=== PATIENT | female | born 1990 | race Caucasian/White ===

== ENCOUNTER 2017-02-19 08:16 | Emergency (ER) | payer MEDICAID ==
[~2017-02-19] VITALS: Ht 162.6 cm; Wt 90.7 kg
[~2017-02-19 08:16] MED LIST: AMOXIL500 MG PO; IBU-8800 MG PO
[2017-02-19 08:19] VITALS: BP 139/75
--- NOTE | 2017-02-19 08:26 | Emergency Room Report ---
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 N Clinical Suspician of Infection? N Mental Status: 1 - Regular (Normal Baseline) Sepsis Risk:Low Sepsis Risk Have you (or family members/close friends) recently traveled outside the [place]? N If Yes, where/when: Have you had exposure to infectious disease within the past month? N TB? Other? 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 Patient denies any other associated injuries. She has a slight antalgic gait. ALLERGIES Coded Allergies: No Known Allergies (02/19/17) Home Medications Reported Medications No Known Home Medications History Medical History General CAD? No Angina: No TN: No Hypertension? No Hyperlipidemia? No CHF? No DVT? No PE? No COPD? No Asthma? No Anemia? No GERD? No Gastric ulcers? No GI Bleed? No Hernia? No Thyroid Problems? No Hypothyroidism? No CVA? No Seizures? No Diabetes? No Renal Insuffiency? No End Stage Renal Disease? No UTI? No Stones? No BPH? No GB Disease: No Nephritic Syndrome? No Asplenia? No Hepatitis? No Sickle Cell Disease? No Arthritis? No Migraines? No Cataracts? No Glaucoma? No MRSA? No HIV? No TB? No Anxiety? No Depression? No Cancer? No More? 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 No: respiratory distress. Lung Sounds bilateral: normal breath sounds, lungs clear. 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 No Comment Upon reevaluation patient appears medically stable, in no acute distress. Patient instructed to use an Marvin wrap, apply ice packs locally, keep affected limb elevated. Work excuse for 2 days provided for patient. Results/Orders Current Medication Orders Sig/Anthony Start time Last Medication Dose Route Stop Time Status Admin Ibuprofen 0 .STK-MED ONE 02/20 0844 DC PO Ibuprofen 0 .STK-MED ONE 02/20 0835 DC PO Ibuprofen 800 MG ONCE ONE 02/19 830 DC 02/19 PO 02/19 831 0843 Orders Procedure Date/time Status STABILIZE JOINT 02/20 828 Active GEN NSG/PT REQ (NOT FOR MEDS!) 02/20 828 Active XRAY/CT/US XRAY/CT/US XRAY LEFT ankle x-ray - negative RIGHT ankle x-ray - negative Departure Departure Time of Disposition 0846 Disposition DC Home or Self Care(routine) Clinical Impression Primary Impression: Right ankle sprain Qualifiers: Encounter type: initial encounter Involved ligament of ankle: unspecified ligament Qualified Code: S93.401A - Sprain of unspecified ligament of right ankle, initial encounter Secondary Impressions: Left ankle sprain Qualifiers: Encounter type: initial encounter Involved ligament of ankle: unspecified ligament Qualified Code: S93.402A - Sprain of unspecified ligament of left ankle, initial encounter Condition STABLE Referrals Dixon Chambers MD: 2 Days-Call Office if not better Patient Instructions DI for Ankle Sprain, How to Use an Elastic Bandage-Knee Sprain Additional Instructions Please alternate Motrin and Tylenol for pain control, keep your ankles elevated, apply ice packs locally, if worse follow up with dr. Chambers as directed. Discharge Counseling Counseled pt/family regarding diagnosis, test results, medications/RX, home care, follow up needs Comment Please alternate Motrin and Tylenol for pain control, keep your ankles elevated, apply ice packs locally, if worse follow up with dr. Chambers as directed. Prescriptions Current Visit Scripts No Known Home Medications ED Critical Care Critical Care No at 6034
--- OUTSIDE RECORDS SUMMARY | 2017-02-19 09:17 | External Medical Summary Rpt | CCD ---
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 URINE CULTURE 57184 [facility] BACTERIAL 7 N N COMMUNTIY COMMUNTIY QUANTTATI HOSPITA HOSPITA VE COLONY COUNT URINE COLLECTIO 56314 [facility] N VENOUS 7 N N BLOOD COMMUNTIY COMMUNTIY VENIPUNCT HOSPITA HOSPITA URE COMPREHEN 35783 [facility] SIVE 7 N N METABOLIC COMMUNTIY COMMUNTIY PANEL HOSPITA HOSPITA URINE 41022 [facility] 7 N N TEST COMMUNTIY COMMUNTIY VISUAL HOSPITA HOSPITA COLOR CMPRSN METHS URNLS DIP 33813 [facility] 7 N N STICK/TAB COMMUNTIY COMMUNTIY LET HOSPITA HOSPITA REAGENT AUTO MICROSCOP Y BLOOD 10346 [facility] COUNT 7 N N COMPLETE COMMUNTIY COMMUNTIY AUTO&AUTO HOSPITA HOSPITA DIFRNTL WBC INJECTION J1885 [facility] 7 N N KETOROLAC COMMUNTIY COMMUNTIY HOSPITA HOSPITA TROMETHAM INE PER [address] [place] [address] [facility] LIPASE 7 N N COMMUNTIY COMMUNTIY HOSPITA HOSPITA INJECTION J2001 [facility] 6 N N LIDOCAINE COMMUNTIY COMMUNTIY HCL HOSPITA HOSPITA INTRAVENO US INFUS 10 MG INCISION 71090 [facility] ELVA & 6 [place] DRAINAGE EMERGENCY ABSCESS PHYS SIMPLE/SI NGLE LIPID 00120 [facility] PANEL 6 DIAGNOSTI DIAGNOSTI CS CS HEMOGLOBI 25874 [facility] N 6 DIAGNOSTI DIAGNOSTI GLYCOSYLA CS CS ANGELIQUE A1C URNLS DIP 12971 [facility] 6 AND STICK/TAB PEDIATRIC LET RGNT S & INTER NON-AUTO W/O MICRSCP COLLECTIO 71772 [facility] N VENOUS 6 DIAGNOSTI DIAGNOSTI BLOOD CS CS VENIPUNCT URE GENERAL 86703 [facility] 6 DIAGNOSTI DIAGNOSTI PANEL CS CS SPMTRY 48231 [facility]ER[facility] & GREISNER W/VC 6 ASTHMA III PRERNA EXPIRATOR ASSOC OF Y JENNIFER TH W/WO MXML VOL VNTJ RADEX 18787 [facility] FOOT 6 N N COMPLETE COMMUNTIY COMMUNTIY MINIMUM 3 HOSPITA HOSPITA VIEWS ANES 13330 [place] DE[place]AY LOWER 6 ANESTHESI INTESTINE A GROUP PS ENDOSCOPY DISTAL DUODENUM COLONOSCO 02274 GASTROENT CASE JUS PY 6 EROLOGY W/BIOPSY AND SINGLE/MU HEPATOL LTIPLE EGD 21366 GASTROENT CASE JUS TRANSORAL 6 EROLOGY BIOPSY AND SINGLE/MU HEPATOL LTIPLE RADEX 56665 [facility] [place] POLA ANKLE 6 RADIOLOGY RHO COMPLETE MINIMUM 3 VIEWS RADEX 17854 [facility] [place] FOOT 6 RADIOLOGY RHO COMPLETE MINIMUM 3 [place] [address] [place] TRANSVAGI 6 [facility] NAL SERV FOUNDATIO N SMR PRIM 85395 [facility] BEARPITN SRC WET 6 [facility] SERV NFCT AGT FOUNDATIO N IADNA 28641 [facility] CHLAMYDIA 6 Y Y [facility] TRACHOMAT IS AMPLIFIED PROBE TQ IADNA 23705 [facility] NEISSERIA 6 Y Y [facility] [place] [address] [facility] [place] ABDOMEN & 6 RADIOLOGY RHO PELVIS W/CONTRAS T MATERIAL IAADIADOO 24196 [facility] RABI[facility] 6 N URGENT ABD STREPTOCO CARE CCUS GROUP A IAADIADOO 99090 [facility] 6 N URGENT ABD INFLUENZA CARE RADIOLOGI 14451 [facility] C 5 [place] ELE[place] EXAMINATI ORTHOPAED ON KNEE 3 ICS PLC VIEWS COLLECTIO 89370 [facility] N VENOUS 5 N N BLOOD COMMUNTIY COMMUNTIY VENIPUNCT HOSPITA HOSPITA URE COMPREHEN 70680 [facility] SIVE 5 N N METABOLIC COMMUNTIY COMMUNTIY PANEL HOSPITA HOSPITA FIBRIN 49466 [facility] DGRADJ 5 N N PRODUCTS COMMUNTIY COMMUNTIY D-DIMER HOSPITA HOSPITA QUANTITAT EMANUEL BLOOD 77399 [facility] COUNT 5 N N COMPLETE COMMUNTIY COMMUNTIY AUTO&AUTO HOSPITA HOSPITA DIFRNTL WBC URNLS DIP 17826 [place] 5 [facility] STICK/TAB SERV LET RGNT FOUNDATIO AUTO W/O N MICROSCOP Y SMR PRIM 73842 [facility] SRC WET 5 [facility] M[facility] SERV NFCT AGT FOUNDATIO N CULTURE 21089 [facility] BACTERIAL 5 N N COMMUNTIY COMMUNTIY QUANTTATI HOSPITA HOSPITA VE COLONY COUNT URINE URINE 87850 [facility] 5 N N TEST COMMUNTIY COMMUNTIY VISUAL HOSPITA HOSPITA COLOR CMPRSN METHS URNLS DIP 82589 [facility] 5 N N STICK/TAB COMMUNTIY COMMUNTIY LET HOSPITA HOSPITA REAGENT AUTO MICROSCOP Y AREO MASK A7015 MT MED MT MED USED W/ 5 EQUIPMENT EQUIPMENT DME NEB INC INC BRNCDILAT 12918 [facility] GREISNER RSPSE 5 ASTHMA III PRERNA SPMTRY ASSOC OF PRE&POST- TH BRNCDILAT ADMN PRESSURIZ 58676 [facility] & GREISNER ED/NONPRE 5 ASTHMA III PRERNA SSURIZED ASSOC OF INHALATIO TH N TREATMENT NEBULIZER E0570 MT MED MT MED WITH 5 EQUIPMENT EQUIPMENT COMPRESSO INC INC R ADMN SET A7005 MT MED MT MED W/SM VOL 5 EQUIPMENT EQUIPMENT NONFILTR INC INC NEBULIZR NON-DISPB L URINE 70415 [facility] 5 N N TEST COMMUNTIY COMMUNTIY VISUAL HOSPITA HOSPITA COLOR CMPRSN METHS URNLS DIP 38150 [facility] 5 N N STICK/TAB COMMUNTIY COMMUNTIY LET HOSPITA HOSPITA REAGENT AUTO MICROSCOP Y IAADIADOO 60148 [facility] 5 N URGENT ABD STREPTOCO CARE CCUS GROUP A DEMO&/VAISHALI 57098 ALLERGY & MENTZER L OF PT 5 ASTHMA HEYDI UTILIZ ASSOC OF AERSL TH GEN/NEB/I NHLR/IP PRESSURIZ 25363 ALLERGY & MENTZER ED/NONPRE 5 ASTHMA HEYDI SSURIZED ASSOC OF INHALATIO TH N TREATMENT PERCUTANE 03039 [facility]ER[facility] & MENTZER OUS TESTS 5 ASTHMA HEYDI ASSOC OF W/ALLERGE TH WILIAN EXTRACTS BRNCDILAT 83956 ALLERGY & MENTZER RSPSE 5 ASTHMA HEYDI SPMTRY ASSOC OF PRE&POST- TH BRNCDILAT ADMN APPL 50647 [facility] MODALITY 5 COL COL 1/> AREAS ELEC STIMJ UNATTENDE D APPL 29010 [place] [facility] MODALITY 5 COL COL 1/> AREAS TRACTION MECHANICA L THERAPEUT 35040 [facility] IC PX 1/> 5 COL COL AREAS EACH 15 MIN EXERCISES MANUAL 27786 [place] GRESHAMON THERAPY 5 COL COL TQS 1/> REGIONS EACH 15 MINUTES CHIROPRAC 81342 [facility] GRESHAMON TIC 5 COL COL MANIPULAT EMANUEL [place] SPINAL 3-4 REGIONS APPLICATI 97473 [facility] LIN[facility] ON 5 COL COL MODALITY 1/> AREAS HOT/COLD PACKS LEVEL V 94224 [facility] SURG 5 PEREZ & CHICA PATHOLOGY DUBILIER GROSS&MARTIN ROSCOPIC EXAM NEURAXIAL 60802 [facility] ANT LABOR 5 ANESTHESI ANALG/ANE A GROUP S PLND PS VAGINAL DELIVERY VAGINAL 17696 [place] DELIVERY 5 [facility] ONLY SERV W/POSTPAR FOUNDATIO SUKHWINDER CARE N APPL 82696 [facility] MODALITY 5 COL COL 1/> AREAS TRACTION MECHANICA L MANUAL 47532 [facility] [place] THERAPY 5 COL COL TQS 1/> REGIONS EACH 15 MINUTES CHIROPRAC 70866 [facility] LIN[facility] TIC 5 COL COL MANIPULAT EMANUEL [place] SPINAL 3-4 REGIONS COLLECTIO 70738 [facility] N VENOUS 5 DIAGNOSTI DIAGNOSTI BLOOD CS CS VENIPUNCT URE MANUAL 47685 [place] [facility] THERAPY 5 COL COL TQS 1/> REGIONS EACH 15 MINUTES CUL 98953 [facility] PRSMPTV 5 DIAGNOSTI DIAGNOSTI PTHGNC CS CS ORGANISM SCRN W/COLONY ESTIMJ APPL 79610 [facility] MODALITY 5 COL COL 1/> AREAS TRACTION MECHANICA L CHIROPRAC 47891 [facility] [place] TIC 5 COL COL MANIPULAT EMANUEL TX SPINAL 3-4 REGIONS APPL 26244 [place] MODALITY 5 COL COL 1/> AREAS ELEC STIMJ UNATTENDE D URNLS DIP 78028 [place] 5 [facility] STICK/TAB SERV LET RGNT FOUNDATIO AUTO W/O N MICROSCOP Y US PREG 14503 [place] O'DINESH UTERUS 5 MEDICAL ROLANDO REAL TIME SERV F/U FOUNDATIO TRNSABDL N PER FETUS BLOOD 25058 [facility] COUNT 5 DIAGNOSTI DIAGNOSTI COMPLETE CS CS AUTOMATED IAADIADOO 48050 [facility] 5 N N INFLUENZA COMMUNTIY COMMUNTIY HOSPITA HOSPITA APPL 74777 [facility] GRESHAMON MODALITY 5 COL COL 1/> AREAS TRACTION MECHANICA L URNLS DIP 54741 [place] 5 [facility] [place] STICK/TAB SERV LET RGNT FOUNDATIO AUTO W/O N MICROSCOP Y APPL 73723 [facility] GRESHAMON MODALITY 5 COL COL 1/> AREAS ELEC STIMJ UNATTENDE D CHIROPRAC 55254 [facility] TIC 5 COL COL MANIPULAT EMANUEL TX SPINAL 3-4 REGIONS MANUAL 18643 [facility] MCCORDESON THERAPY 5 COL COL TQS 1/> REGIONS EACH 15 MINUTES APPLICATI 75925 [facility] ON 5 COL COL MODALITY 1/> AREAS HOT/COLD PACKS APPLICATI 33470 [facility] [facility] ON 5 COL COL MODALITY 1/> AREAS HOT/COLD PACKS MANUAL 49622 [facility] M[place]ORDES[place] THERAPY 5 COL COL TQS 1/> REGIONS EACH 15 MINUTES CHIROPRAC 44552 [facility] [facility] TIC 5 COL COL MANIPULAT EMANUEL TX SPINAL 3-4 REGIONS APPL 42709 [facility] GR[place]AM[place] MODALITY 5 COL COL 1/> AREAS ELEC STIMJ UNATTENDE D URNLS DIP 30485 [place] 5 [facility] STICK/TAB SERV LET RGNT FOUNDATIO AUTO W/O N MICROSCOP Y APPL 89084 [facility] GR[facility]AM[facility] MODALITY 5 COL COL 1/> AREAS TRACTION MECHANICA L US PREG 46469 [place] O'DINESH UTERUS 5 MEDICAL ROLANDO REAL TIME SERV F/U FOUNDATIO TRNSABDL N PER FETUS URNLS DIP 11998 [place] 5 [facility] STICK/TAB SERV LET RGNT FOUNDATIO AUTO W/O N MICROSCOP Y IADNA 14772 [facility] NEISSERIA 5 DIAGNOSTI DIAGNOSTI CS CS GONORRHOE AE AMPLIFIED PROBE TQ APPL 31890 [facility] GR[facility]AM[place] MODALITY 5 COL COL 1/> AREAS ELEC STIMJ UNATTENDE D APPL 64251 [place] MODALITY 5 COL COL 1/> AREAS TRACTION MECHANICA L MANUAL 03514 [facility] M[place] THERAPY 5 COL COL TQS 1/> REGIONS EACH 15 MINUTES CHIROPRAC 49198 HOLLANDEDUARDO GRESHAMON TIC 5 COL COL MANIPULAT EMANUEL TX SPINAL 3-4 REGIONS SMR PRIM 65551 [place] SRC WET 5 [facility] NFCT AGT FOUNDATIO N IADNA 76516 [facility] CHLAMYDIA 5 DIAGNOSTI DIAGNOSTI CS CS TRACHOMAT IS AMPLIFIED PROBE TQ URNLS DIP 45162 [facility] 5 N N STICK/TAB COMMUNITY COMMUNITY LET HOSPITA HOSPITA REAGENT AUTO MICROSCOP Y URNLS DIP 81134 [place] 5 [facility] STICK/TAB SERV LET RGNT FOUNDATIO AUTO W/O N MICROSCOP Y MANUAL 08280 [facility] THERAPY 5 COL COL TQS 1/> REGIONS EACH 15 MINUTES APPLICATI 96283 [facility] [facility] ON 5 COL COL MODALITY 1/> AREAS HOT/COLD PACKS APPL 08129 [facility] GR[place]AM[place] MODALITY 5 COL COL 1/> AREAS ELEC STIMJ UNATTENDE D CHIROPRAC 78528 HOLLANDEDUARDO GRESHAMON TIC 5 COL COL MANIPULAT EMANUEL TX SPINAL 3-4 REGIONS APPL 83314 [facility] M[place] MODALITY 5 COL COL 1/> AREAS TRACTION MECHANICA L APPL 45034 [facility] MODALITY 5 COL COL 1/> AREAS ELEC STIMJ UNATTENDE D APPL 68572 [facility] MODALITY 5 COL COL 1/> AREAS TRACTION MECHANICA L MANUAL 28575 [facility] GR[facility]AM[place] THERAPY 5 COL COL TQS 1/> REGIONS EACH 15 MINUTES CHIROPRAC 27063 [facility] TIC 5 COL COL MANIPULAT EMANUEL TX SPINAL 3-4 REGIONS APPLICATI 75839 [facility] ON 5 COL COL MODALITY 1/> AREAS HOT/COLD PACKS APPLICATI 78665 [facility] ON 4 COL COL MODALITY 1/> AREAS HOT/COLD PACKS CHIROPRAC 80980 [facility] TIC 4 COL COL MANIPULAT EMANUEL TX SPINAL 3-4 REGIONS MANUAL 43073 [facility] THERAPY 4 COL COL TQS 1/> REGIONS EACH 15 MINUTES APPL 08167 [facility] MODALITY 4 COL COL 1/> AREAS TRACTION MECHANICA L APPL 66162 [facility] MODALITY 4 COL COL 1/> AREAS ELEC STIMJ UNATTENDE D URNLS DIP 13542 [place] 4 [facility] STICK/TAB SERV LET RGNT FOUNDATIO AUTO W/O N MICROSCOP Y US PREG 53033 [place] O'DINESH UTERUS 4 MEDICAL ROLANDO REAL TIME SERV F/U FOUNDATIO TRNSABDL N PER FETUS APPL 09364 [facility] MODALITY 4 COL COL 1/> AREAS TRACTION MECHANICA L APPL 10790 [facility] MODALITY 4 COL COL 1/> AREAS ELEC STIMJ UNATTENDE D MANUAL 95554 [facility] THERAPY 4 COL COL TQS 1/> REGIONS EACH 15 MINUTES CHIROPRAC 11138 [facility] TIC 4 COL COL MANIPULAT EMANUEL TX SPINAL 3-4 REGIONS APPLICATI 58733 [facility] [facility] ON 4 COL COL MODALITY 1/> AREAS HOT/COLD PACKS APPLICATI 94036 [facility] [facility] ON 4 COL COL MODALITY 1/> AREAS HOT/COLD PACKS CHIROPRAC 39251 [facility] TIC 4 COL COL MANIPULAT EMANUEL TX SPINAL 3-4 REGIONS MANUAL 10994 [facility] THERAPY 4 COL COL TQS 1/> REGIONS EACH 15 MINUTES APPL 74050 [facility] MCCORDESON MODALITY 4 COL COL 1/> AREAS ELEC STIMJ UNATTENDE D APPL 53578 [facility] GRESHAMON MODALITY 4 COL COL 1/> AREAS TRACTION MECHANICA L IAADIADOO 16367 [facility] 4 N N INFLUENZA [facility] HOSPITA HOSPITA APPL 38339 [facility] MCCORDESON MODALITY 4 COL COL 1/> AREAS TRACTION MECHANICA L APPL 62016 [facility] MODALITY 4 COL COL 1/> AREAS ELEC STIMJ UNATTENDE D MANUAL 57746 [facility] THERAPY 4 COL COL TQS 1/> REGIONS EACH 15 MINUTES CHIROPRAC 29563 [facility] TIC 4 COL COL MANIPULAT EMANUEL [place] SPINAL 3-4 REGIONS COLLECTIO 70844 [facility] N VENOUS 4 DIAGNOSTI DIAGNOSTI BLOOD CS CS VENIPUNCT URE APPLICATI 19613 [facility] MCCORDESON ON 4 COL COL MODALITY 1/> AREAS HOT/COLD PACKS GLUCOSE 59232 [facility] TOLERANCE 4 DIAGNOSTI DIAGNOSTI TEST GTT CS CS 3 SPECIMENS GLUCOSE 21886 [facility] TOLERANCE 4 DIAGNOSTI DIAGNOSTI EA ADDL CS CS BEYOND 3 SPECIMENS GLUCOSE 85751 [facility] POST 4 DIAGNOSTI DIAGNOSTI GLUCOSE CS CS DOSE BLOOD 38150 [facility] COUNT 4 DIAGNOSTI DIAGNOSTI COMPLETE CS CS AUTOMATED COLLECTIO 39293 [facility] N VENOUS 4 DIAGNOSTI DIAGNOSTI BLOOD CS CS VENIPUNCT URE COMPREHEN 16764 [facility] SIVE 4 DIAGNOSTI DIAGNOSTI METABOLIC CS CS PANEL APPL 77181 HOLLANDVEGA LINO MODALITY 4 COL COL 1/> AREAS TRACTION MECHANICA L APPL 71443 [facility] MODALITY 4 COL COL 1/> AREAS ELEC STIMJ UNATTENDE D MANUAL 17432 [facility] THERAPY 4 COL COL TQS 1/> REGIONS EACH 15 MINUTES CHIROPRAC 68272 [facility] GRESHAMON TIC 4 COL COL MANIPULAT EMANUEL TX SPINAL 3-4 REGIONS APPLICATI 43722 [facility] ON 4 COL COL MODALITY 1/> AREAS HOT/COLD PACKS APPLICATI 28304 [facility] ON 4 COL COL MODALITY 1/> AREAS HOT/COLD PACKS CHIROPRAC 26462 [facility] [place] TIC 4 COL COL MANIPULAT EMANUEL TX SPINAL 3-4 REGIONS MANUAL 34522 [facility] THERAPY 4 COL COL TQS 1/> REGIONS EACH 15 MINUTES APPL 17805 [facility] GRESHAMON MODALITY 4 COL COL 1/> AREAS ELEC STIMJ UNATTENDE D APPL 27082 [facility] GR[facility]AM[facility] MODALITY 4 COL COL 1/> AREAS TRACTION MECHANICA L APPL 49138 [facility] [facility] MODALITY 4 COL COL 1/> AREAS TRACTION MECHANICA L APPL 10341 [facility] GR[facility] MODALITY 4 COL COL 1/> AREAS ELEC STIMJ UNATTENDE D MANUAL 90086 [facility] THERAPY 4 COL COL TQS 1/> REGIONS EACH 15 MINUTES CHIROPRAC 81253 [facility] TIC 4 COL COL MANIPULAT EMANUEL TX SPINAL 3-4 REGIONS APPLICATI 31140 [facility] ON 4 COL COL MODALITY 1/> AREAS HOT/COLD PACKS US PREG 77415 [facility] O'DINESH UTERUS 4 MEDICAL ROLANDO W/DETAIL SERV FOUNDATIO [place]ES[place] 1ST [place] [address] [facility] [place] FRITZ 4 RADIOLOGY [place]AY UTERUS LIMITED 1/> [place] [address] [facility] 4 N N UTERUS 14 [facility] HOSPITA TRANSABDL GESTAT CULTURE 62247 [facility] BACTERIAL 4 DIAGNOSTI DIAGNOSTI CS CS QUANTTATI VE COLONY COUNT URINE CULTURE 84964 [facility] BCT 4 DIAGNOSTI DIAGNOSTI ISOL&PRSM CS CS PTV ID ISOLATE EA URINE CUL BACT 24028 [facility] AEROBIC 4 N N ADDL [facility] METHS HOSPITA HOSPITA DEFINITIV E EA ISOL CULTURE 01194 [facility] BACTERIAL 4 N N COMMUNITY [facility] QUANTTATI HOSPITA HOSPITA VE COLONY COUNT URINE COMPREHEN 83841 [facility] SIVE 4 N N METABOLIC [facility] PANEL HOSPITA HOSPITA UROGRAPHY 90647 [facility] [place] POLA IV W/WO 4 RADIOLOGY RHO KUB W/WO TOMOGRAPH Y UROGRAPHY 69590 [facility] INFUSION 4 N N DRIP [facility] &/BOLUS HOSPITA HOSPITA TECHNIQUE SUSCEPTIB 25566 [facility] LTY STDY 4 N N ANTIMICRB [facility] IAL HOSPITA HOSPITA MICRO/AGA R DILUTJ BLOOD 66707 [facility] COUNT 4 N N COMPLETE [facility] AUTO&AUTO HOSPITA HOSPITA DIFRNTL WBC URNLS DIP 95009 [facility] 4 N N STICK/TAB [facility] LET HOSPITA HOSPITA REAGENT AUTO MICROSCOP Y BLOOD 65569 [facility] COUNT 4 DIAGNOSTI DIAGNOSTI COMPLETE CS CS AUTOMATED ANTIBODY 97271 [facility] RUBELLA 4 DIAGNOSTI DIAGNOSTI CS CS ANTIBODY 79276 [facility] SCREEN 4 DIAGNOSTI DIAGNOSTI RBC EACH CS CS SERUM TECHNIQUE BLOOD 00674 [facility] TYPING 4 DIAGNOSTI DIAGNOSTI SEROLOGIC CS CS ABO IADNA 95578 [facility] NEISSERIA 4 DIAGNOSTI DIAGNOSTI CS CS GONORRHOE [place] [address] [facility] HEPATITIS 4 DIAGNOSTI DIAGNOSTI B CS CS SURFACE ANTIGEN CYTP C/V 43083 [facility] AUTO THIN 4 DIAGNOSTI DIAGNOSTI LYR CS CS PREPJ SCR MNL RESCR PHYS IADNA 70658 [facility] CHLAMYDIA 4 DIAGNOSTI DIAGNOSTI CS CS TRACHOMAT IS AMPLIFIED [place]BE [place]Q [place] PREG 22199 [place] ROVERTO UTERUS 4 MEDICAL PVC MONITOR REAL TIME SERV W/IMAGE FOUNDATIO DCMTN N TRANSVAG COLLECTIO 74326 [facility] N VENOUS 4 DIAGNOSTI DIAGNOSTI [place] [address] [facility] [place] SANCHEZ JAM 4 RADIOLOGY UTERUS LIMITED 1/> FETUSES CULTURE 22536 [facility] BACTERIAL 4 N N [facility] QUANTTATI HOSPITA HOSPITA VE COLONY COUNT URINE BASIC 15392 [facility] METABOLIC 4 N N PANEL [facility] [place] [address] [facility] 4 N N UTERUS 14 COMM[facility]ITY [facility] HOSPITA HOSPITA TRANSABDL GESTAT URINE 65585 [facility] 4 N N TEST [facility] VISUAL HOSPITA HOSPITA COLOR CMPRSN METHS GONADOTRO 13848 [facility] PIN 4 N N CHORIONIC [facility] HOSPITA HOSPITA QUANTITAT EMANUEL BLOOD 55914 [facility] COUNT 4 N N COMPLETE [facility] AUTO&AUTO HOSPITA HOSPITA DIFRNTL WBC URNLS DIP 83445 [facility] 4 N N STICK/TAB [facility] LET HOSPITA HOSPITA REAGENT AUTO MICROSCOP Y URINE 90361 [facility] TEST HLTH DEPT HLTH DEPT VISUAL SCO SCO COLOR CMPRSN METHS URINE 57136 [facility] 3 N N TEST [facility] VISUAL HOSPITA HOSPITA COLOR CMPRSN METHS BLOOD 04004 [facility] COUNT 3 N N COMPLETE [facility] AUTO&AUTO HOSPITA HOSPITA DIFRNTL WBC COLLECTIO 07458 [facility] N VENOUS 3 N N BLOOD [facility] [place] [address] [facility] MUNA ABDOMINAL 3 RADIOLOGY REAL TIME W/IMAGE LIMITED URINE 75338 [facility] 3 N N TEST [facility] VISUAL HOSPITA HOSPITA COLOR CMPRSN METHS BLOOD 20738 [facility] OCCULT 3 N N PEROXIDAS [facility] E ACTV HOSPITA HOSPITA QUAL FECES 1-3 SPEC URNLS DIP 24388 [facility] 3 N N STICK/TAB [facility] LET HOSPITA HOSPITA REAGENT AUTO MICROSCOP Y BLOOD 22858 [facility] COUNT 3 N N COMPLETE [facility] AUTO&AUTO HOSPITA HOSPITA DIFRNTL WBC THROMBOPL 12700 [facility] ASTIN 3 N N TIME [facility] PARTIAL HOSPITA HOSPITA PLASMA/WH OLE BLOOD FIBRIN 96041 [facility] DGRADJ 3 N N PRODUCTS [facility] D-DIMER HOSPITA HOSPITA QUANTITAT EMANUEL PROTHROMB 02002 [facility] IN TIME 3 N N COMMUNITY [facility] HOSPITA HOSPITA COLLECTIO 44306 [facility] N VENOUS 3 N N BLOOD [facility] VENIPUNCT HOSPITA HOSPITA URE COMPREHEN 02006 [facility] SIVE 3 N N METABOLIC [facility] PANEL HOSPITA HOSPITA NEURAXIAL 00921 [facility] 3 ANESTHESI MARTIN ANALG/ANE A GROUP S PLND PS VAGINAL DELIVERY OTHER 7359 [facility] MANUALLY 3 N N ASSISTED [facility] DELIVERY HOSPITA HOSPITA OTHER 7309 [facility] ARTIFICIA 3 N N L RUPTURE [facility] OF HOSPITA HOSPITA MEMBRANES GLUC BLD 64930 [facility] GLUC MNTR 2 N N DEV [facility] CLEARED HOSPITA HOSPITA FDA SPEC HOME USE Encounters Encounter Start End Date Code Location Performer Type Date [facility] - 7 7 [facility] T [facility] OFFICE 98466 [facility] 7 7 [employer] T VISIT 15 MINUTES EMERGENCY 82506 [facility] KATHERINE 7 7 [place] EM[facility] T VISIT PHYS HIGH/URGE NT SEVERITY PERIODIC 15571 JOSE RODRIGUEZ PREVENTIV 7 7 MEDICAL E MED EST SERV PATIENT FOUNDATIO 18-39 YRS N EMERGENCY 20127 [facility] ERIK 7 7 [place] [facility] EMERGENC[facility] T VISIT PHYS HIGH/URGE NT SEVERITY OFFICE 26664 [facility] OUTPATIEN 7 7 [facility] T VISIT 15 MINUTES OFFICE 07963 [facility] 7 7 N URGENT T VISIT CARE 15 MINUTES EMERGENCY 20091 [facility] 7 7 [place] [facility] EMERGENCY T VISIT PHYS MODERATE SEVERITY OFFICE 28891 [facility]ANDA CONSULTAT 7 7 [facility] ION NEW/ESTAB PATIENT 40 MIN OFFICE 42849 [facility] OUTPATIEN 7 7 [facility] T VISIT 15 MINUTES OFFICE 08672 [facility] OUTPATIEN 7 7 [facility] T VISIT 5 MINUTES OFFICE 76555 [facility] OUTPATIEN 7 7 [facility] T VISIT 5 MINUTES OFFICE 43570 [facility] OUTPATIEN 7 7 [facility] T VISIT 5 MINUTES OFFICE 46184 [facility]ERRO [facility] 7 7 [facility] T VISIT 5 MINUTES OFFICE 04614 [facility] THOMPS[facility], OUTPATIEN 7 7 [facility] III T NEW 30 MINUTES [facility] EMERGENCY [id number] 7 7 [facility] DEPARTMEN E T VISIT HOSPITALS HIGH/URGE NT SEVERITY EMERGENCY 72655 [facility] 7 7 [place] DEPARTMEN PHYSICIAN T VISIT S ASSIST MODERATE SEVERITY EMERGENCY 83209 [facility] 7 7 N DEPARTMEN COMMUNTIY T VISIT HOSPITA MODERATE SEVERITY [facility] - 7 7 N OUTPATIEN COMMUNTIY T HOSPITA EMERGENCY 58172 [facility] 7 7 [place] DEPARTMEN EMERGENCY T VISIT PHYS HIGH/URGE NT SEVERITY [facility] - 7 7 N OUTPATIEN COMMUNTIY T HOSPITA EMERGENCY 47505 [facility] 7 7 N DEPARTMEN COMMUNTIY T VISIT HOSPITA LOW/MODER SEVERITY EMERGENCY 51868 [facility] 7 7 [place] DEPARTMEN EMERGENCY T VISIT PHYS MODERATE SEVERITY EMERGENCY 84537 [facility] 6 6 N DEPARTMEN COMMUNTIY T VISIT HOSPITA HIGH/URGE NT SEVERITY [facility] - 6 6 N OUTPATIEN COMMUNTIY T HOSPITA EMERGENCY 40014 [facility] 6 6 [place] DEPARTMEN EMERGENCY T VISIT PHYS MODERATE SEVERITY OFFICE 91885 [facility] 6 AND T VISIT PEDIATRIC 15 S & INTER MINUTES OFFICE 00526 [facility] 6 6 [facility] III PRERNA T VISIT ASSOC OF 15 TH MINUTES EMERGENCY 95917 [facility] 6 6 N DEPARTMEN COMMUNTIY T VISIT HOSPITA MODERATE SEVERITY [facility] - 6 6 N OUTPATIEN COMMUNTIY T HOSPITA [facility] - 6 6 N OUTPATIEN COMMUNTIY T HOSPITA EMERGENCY 99659 [facility] 6 6 [place] [facility] DEPARTMEN EMERGENCY PAT T VISIT PHYS MODERATE SEVERITY EMERGENCY 02995 [facility] 6 6 N DEPARTMEN COMMUNTIY T VISIT HOSPITA LOW/MODER SEVERITY EMERGENCY 38188 [facility] 6 6 [place] DEPARTMEN EMERGENCY T VISIT PHYS MODERATE SEVERITY OFFICE 75932 [facility] 6 6 GROUND [facility] NEW/ESTAB CLINI PATIENT 60 MIN OFFICE 93176 [facility] OUTPATIEN 6 6 N URGENT ABD T VISIT CARE 15 MINUT[facility]22 [facility] 6 6 [facility] E MED EST SERV PATIENT F[facility] 18-39 YRS N OFFICE 30925 [facility] 6 AND T VISIT PEDIATRIC 15 S & INTER MINUTES EMERGENCY 00810 [facility] DEPT 6 6 [place] TESSIE VISIT EMERGENCY HIGH PHYS SEVERITY& THREAT FUN OFFICE 44874 [facility] 6 6 N URGENT ABD T VISIT CARE 15 MINUTES OFFICE 42643 [facility] 6 6 ASTH[facility] III PRERNA T VISIT ASSOC OF 15 TH MINUTES EMERGENCY 25766 [facility] DEPT 6 6 [place] VISIT EMERGENCY PAT HIGH PHYS SEVERITY& THREAT [facility] OFFICE 13377 [facility] OUT[facility] 6 6 N URGENT ABD T VISIT CARE 25 MINUTES OFFICE 05139 [facility] 5 5 [place] ELENA T NEW 30 ORTHOPAED MINUTES [facility] EMERGENCY 90255 [facility] 5 5 [place] DEPARTMEN EMERGENCY T VISIT PHYS MODERATE SEVERITY EMERGENCY 33559 [facility] 5 5 N DEPARTMEN COMMUNTIY T VISIT HOSPITA LOW/MODER SEVERITY [facility] - 5 5 N OUTPATIEN COMMUNTIY T HOSPITA EMERGENCY [address] [facility] DEPT 5 5 [place] MON VISIT EMERGENCY HIGH PHYS SEVERITY& THREAT [facility] - 5 5 N OUTPATIEN COMMUNTIY T HOSPITA EMERGENCY 98911 [facility] 5 5 N DEPARTMEN COMMUNTIY T VISIT HOSPITA MODERATE SEVERITY OFFICE 64885 [facility] 5 5 [facility] T VISIT SERV 15 FOUNDAT[facility] MINUTES N EMERGENCY 93863 [facility] 5 5 N DEPARTMEN COMMUNTIY T VISIT HOSPITA MODERATE SEVERITY [facility] - 5 5 N OUTPATIEN COMMUNTIY T HOSPITA EMERGENCY 77859 [facility] 5 5 [place] TESSIE DEPARTMEN EMERGENCY T VISIT PHYS HIGH/URGE NT SEVERITY OFFICE 72837 [facility] 5 5 ASTHMA III PRERNA T VISIT ASSOC OF 15 TH MINUTES EMERGENCY 71695 [facility] 5 5 [place] DEPARTMEN EMERGENCY T VISIT SERV MODERATE SEVERITY [facility] - 5 5 N OUTPATIEN COMMUNTIY T HOSPITA EMERGENCY 57074 [facility] 5 5 N DEPARTMEN COMMUNTIY T VISIT HOSPITA LIMITED/M INOR PROB OFFICE 07113 [facility] 5 5 [facility] T VISIT SERV 15 [facility] MINUTES N OFFICE 41008 [facility] 5 5 N URGENT ABD T VISIT CARE 15 MINUTES OFFICE 62675 [facility] 5 5 N URGENT ABD T NEW 30 CARE MINUTES OFFICE 10394 [facility] 5 5 [facility] HEYDI T NEW 60 ASSOC OF MINUTES TH OFFICE 72318 [facility] 5 5 [facility] T VISIT SERV 10 [facility]OUND[facility] MINUTES N [facility] - 5 5 N OUTPATIEN COMMUNTIY T HOSPITA EMERGENCY 16013 [facility] 5 5 N DEPARTMEN COMMUNTIY T VISIT HOSPITA LOW/MODER SEVERITY EMERGENCY 17734 [facility] MAR 5 5 [place] DEPARTMEN EMERGENCY T VISIT PHYS MODERATE SEVERITY OFFICE 65009 [facility] 5 5 [facility] T VISIT SERV 15 [facility] MINUTES N OFFICE 81732 [facility] 5 5 [facility] T VISIT SERV 15 FOUNDAT[facility] MINUTES N EMERGENCY 87548 [facility] 5 5 N DEPARTMEN COMMUNTIY T VISIT HOSPITA LIMITED/M IN[facility] PROB [facility] - 5 5 N OUTPATIEN COMMUNTIY T HOSPITA OFFICE 72991 [place] [facility] 5 5 [facility] T VISIT SERV 15 FOUND[facility] MINUTES N OFFICE 85022 [facility] 5 5 COL COL T VISIT 10 MINUTES OFFICE 02854 [place] [facility] 5 5 [facility] T VISIT SERV 15 [facility]OUND[facility] MINUTES N [facility] - 5 5 N OUTPATIEN COMMUNTIY T HOSPITA EMERGENCY 93963 [facility] 5 5 N [facility] COMMUNTIY T VISIT HOSPITA HIGH/URGE NT SEVERITY OFFICE 72332 [place] [facility] 5 5 [facility] T VISIT SERV 15 [facility] MINUTES N OFFICE 74991 [facility] 5 5 [facility] T VISIT SERV 15 [facility] MINUTES N OFFICE 95571 [facility] 5 5 [facility] T VISIT SERV 15 [facility]OUND[facility] MINUTES N [facility] - 5 5 N OUTPATIEN COMMUNITY T HOSPITA EMERGENCY 16910 [facility] 5 5 N DEPARTMEN COMMUNITY T VISIT HOSPITA MODERATE SEVERITY OFFICE 20140 [facility] 5 5 [facility] T VISIT SERV 15 [facility]OUND[facility] MINUTES N OFFICE 11852 [facility] 4 4 [facility] T VISIT SERV 15 FOUNDATIO MINUTES N [facility] 4 4 N [facility] COMMUNITY T HOSPITA EMERGENCY 28441 [facility] 4 4 N [facility] COMMUNITY T VISIT HOSPITA MODERATE SEVERITY OFFICE 53417 [facility] 4 4 [facility] T VISIT SERV 15 [facility] MINUTES N OFFICE 16816 [facility] 4 4 [facility] T VISIT SERV 15 FOUNDATIO MINUTES N OFFICE 46450 [facility] 4 4 COL COL T NEW 20 MINUTES EMERGENCY 41285 [facility] 4 4 N [facility] COMMUNITY T VISIT HOSPITA MODERATE SEVERITY [facility] - 4 4 N [facility] COMMUNITY T HOSPITA OFFICE 65512 [place] [facility] 4 4 [facility] T VISIT SERV 15 [facility]OUND[facility] MINUTES N OFFICE 01436 [facility] 4 4 [facility] T VISIT SERV 15 [facility]OUND[facility] MINUTES N OFFICE 08447 [facility] 4 4 [facility] T VISIT SERV 15 FOUNDATIO MINUTES N EMERGENCY 74596 [facility] 4 4 N [facility] T VISIT [facility]ESS HOSPITAL LIMITED[facility]M INOR PROB EMERGENCY 48445 [facility] 4 4 [place] PRERNA [facility] EMERGENCY T VISIT [facility] MODERATE [facility]VERITY [facility] - 4 4 N [facility] COMMUNITY T HOSPITA OFFICE 60902 [place] [facility] 4 4 [facility] T VISIT SERV 15 FOUNDAT[place] MINUTES N OFFICE 92478 [place] [facility] [facility] 4 4 MEDICAL PVC MONITOR T VISIT SERV 15 FOUNDATIO MINUTES [facility]OSP[facility] - 4 4 N OUTPATIEN COMMUNITY T HOSPITA EMERGENCY 12535 [facility] 4 4 [place] DEPARTMEN EMERGENCY T VISIT PHYSI HIGH/URGE NT SEVERITY OFFICE 29242 [facility] OUT[facility]IEN 4 4 [facility] T VISIT SERV [address] [facility] 4 4 [facility] 17552 [facility] 4 4 [place] [facility] DEPARTMEN EMERGENCY PAT T VISIT PHYSI HIGH/URGE NT SEVERITY OFFICE 61788 [facility]AYNE OUTPATIEN 4 4 MEDICAL PVC MONITOR T VISIT SERV [address] [facility] - 4 4 N [facility] T HOSPITA EMERGENCY 77231 [facility] ELVA FILI 4 4 [place] DEPARTMEN EMERGENCY T VISIT PHYSI HIGH/URGE NT SEVERITY OFFICE 51272 RAD[facility] OUTPATI[facility] 4 4 [facility]ISIT [facility] DEPT HL[facility] DEPT 10 SCO SCO MINUTES EMERGENCY 79720 [facility] LLOYD 3 3 EMERGENCY TESSIE DEPARTMEN SERVICES T VISIT MODERATE SEVERITY [facility] - 3 3 N [facility] T HOSPCRITICAL ACCESS HOSPITAL [facility] - 3 3 N [facility] T HOSPITA EMERGENCY 71573 REHANA 3 3 EMERGENCY DEPARTMEN SERVICES T VISIT HIGH/URGE NT SEVERITY [facility] - 3 3 N OUTPATIEN COMMUNITY T HOSPITA EMERGENCY 68707 [facility] 3 [facility] MODERATE [facility]VERITY [facility] - 3 3 N [facility]PATIENT [facility] HOSPCRITICAL ACC[facility] HOSPITAL [facility] - 2 2 N [facility] T HOSPITA EMERGENCY 93009 [facility] 2 2 [facility] MODERATE [facility]VERITY [facility] [place] [address] 2 N [facility]
--- OUTSIDE RECORDS SUMMARY | 2017-02-19 09:17 | External Medical Summary Rpt | CCD ---
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 LIN[facility] MODALITY 4 COL COL 1/> AREAS TRACTION MECHANICA L APPL 39945 [facility] [facility] MODALITY 4 COL COL 1/> AREAS ELEC STIMJ UNATTENDE D URNLS DIP 55307 [place] 4 [facility] STICK/TAB SERV LET RGNT FOUNDATIO AUTO W/O N MICROSCOP Y US PREG 06363 [place] O'[place]IN[place] UTERUS 4 MEDICAL ROLANDO REAL TIME SERV F/U FOUNDATIO TRNSABDL N PER FETUS APPL 85289 [facility] LINO MODALITY 4 COL COL 1/> AREAS TRACTION MECHANICA L APPL 00695 [facility] LINO MODALITY 4 COL COL 1/> AREAS ELEC STIMJ UNATTENDE D MANUAL 57264 [facility] LIN[facility] THERAPY 4 COL COL TQS 1/> REGIONS EACH 15 MINUTES CHIROPRAC 61327 [facility] LIN[facility] TIC 4 COL COL MANIPULAT EMANUEL TX SPINAL 3-4 REGIONS APPLICATI 59671 [facility] LIN[facility] ON 4 COL COL MODALITY 1/> AREAS HOT/COLD PACKS APPLICATI 73169 [facility] LINO ON 4 COL COL MODALITY 1/> AREAS HOT/COLD PACKS CHIROPRAC 31746 [facility] LINO TIC 4 COL COL MANIPULAT EMANUEL TX SPINAL 3-4 REGIONS MANUAL 14013 [facility] HOLLAND THERAPY 4 COL COL TQS 1/> REGIONS EACH 15 MINUTES APPL 37280 [facility] MCCORDESON MODALITY 4 COL COL 1/> AREAS ELEC STIMJ UNATTENDE D APPL 17078 [facility] GRESHAMON MODALITY 4 COL COL 1/> AREAS TRACTION MECHANICA L IAADIADOO 16657 [facility] 4 N N INFLUENZA [facility] HOSPITA HOSPITA APPL 17905 [facility] MCCORDESON MODALITY 4 COL COL 1/> AREAS TRACTION MECHANICA L APPL 98839 [facility] HOLLAND MODALITY 4 COL COL 1/> AREAS ELEC STIMJ UNATTENDE D MANUAL 14813 [facility] THERAPY 4 COL COL TQS 1/> REGIONS EACH 15 MINUTES CHIROPRAC 46981 [facility] LIN[facility] TIC 4 COL COL MANIPULAT EMANUEL TX SPINAL 3-4 REGIONS COLLECTIO 12219 [facility] N VENOUS 4 DIAGNOSTI DIAGNOSTI BLOOD CS CS VENIPUNCT URE APPLICATI 51148 [facility] MCCORDESON ON 4 COL COL MODALITY 1/> AREAS HOT/COLD PACKS GLUCOSE 58682 [facility] TOLERANCE 4 DIAGNOSTI DIAGNOSTI TEST GTT CS CS 3 SPECIMENS GLUCOSE 00954 [facility] TOLERANCE 4 DIAGNOSTI DIAGNOSTI EA ADDL CS CS BEYOND 3 SPECIMENS GLUCOSE 73345 [facility] POST 4 DIAGNOSTI DIAGNOSTI GLUCOSE CS CS DOSE BLOOD 28424 [facility] COUNT 4 DIAGNOSTI DIAGNOSTI COMPLETE CS CS AUTOMATED COLLECTIO 72935 [facility] N VENOUS 4 DIAGNOSTI DIAGNOSTI BLOOD CS CS VENIPUNCT URE COMPREHEN 73902 [facility] SIVE 4 DIAGNOSTI DIAGNOSTI METABOLIC CS CS PANEL APPL 28170 [facility] LINO MODALITY 4 COL COL 1/> AREAS TRACTION MECHANICA L APPL 11449 [facility] HOLLAND MODALITY 4 COL COL 1/> AREAS ELEC STIMJ UNATTENDE D MANUAL 26741 [facility] THERAPY 4 COL COL TQS 1/> REGIONS EACH 15 MINUTES CHIROPRAC 57075 [facility] GRESHAMON TIC 4 COL COL MANIPULAT EMANUEL TX SPINAL 3-4 REGIONS APPLICATI 72577 [facility] LINO ON 4 COL COL MODALITY 1/> AREAS HOT/COLD PACKS APPLICATI 08214 [facility] LINO ON 4 COL COL MODALITY 1/> AREAS HOT/COLD PACKS CHIROPRAC 72176 HO[facility] HOLLAND TIC 4 COL COL MANIPULAT EMANUEL TX SPINAL 3-4 REGIONS MANUAL 16704 [facility] HOLLAND THERAPY 4 COL COL TQS 1/> REGIONS EACH 15 MINUTES APPL 34636 [facility] GRESHAMON MODALITY 4 COL COL 1/> AREAS ELEC STIMJ UNATTENDE D APPL 43161 [facility] GRESHAMON MODALITY 4 COL COL 1/> AREAS TRACTION MECHANICA L APPL 56401 [facility] GRESHAMON MODALITY 4 COL COL 1/> AREAS TRACTION MECHANICA L APPL 70335 [facility] GRESHAMON MODALITY 4 COL COL 1/> AREAS ELEC STIMJ UNATTENDE D MANUAL 06323 [facility] GRESHAMON THERAPY 4 COL COL TQS 1/> REGIONS EACH 15 MINUTES CHIROPRAC 87622 [facility] LIN[facility] TIC 4 COL COL MANIPULAT EMANUEL TX SPINAL 3-4 REGIONS APPLICATI 71946 [facility] LINO ON 4 COL COL MODALITY 1/> AREAS HOT/COLD PACKS US PREG 38562 JOSE O'DINESH UTERUS 4 MEDICAL ROLANDO W/DETAIL SERV [place]OUNDAT[place] 1[place] [address] [facility] FRITZ 4 RADIOLOGY RAY UTERUS LIMITED 1/> [place] [address] [facility] 4 N N UTERUS 14 [facility] HOSPITA TRANSABDL GESTAT CULTURE 03846 [facility] BACTERIAL 4 DIAGNOSTI DIAGNOSTI CS CS QUANTTATI VE COLONY COUNT URINE CULTURE 92535 [facility] BCT 4 DIAGNOSTI DIAGNOSTI ISOL&PRSM CS CS PTV ID ISOLATE EA URINE CUL BACT 40133 [facility] AEROBIC 4 N N ADDL [facility] METHS HOSPITA HOSPITA DEFINITIV E EA ISOL CULTURE 41831 [facility] BACTERIAL 4 N N [facility] QUANTTATI HOSPITA HOSPITA VE COLONY COUNT URINE COMPREHEN 63126 [facility] SIVE 4 N N METABOLIC [facility] PANEL HOSPITA HOSPITA UROGRAPHY 82639 [facility] [place] POLA IV W/WO 4 RADIOLOGY RHO KUB W/WO TOMOGRAPH Y UROGRAPHY 10455 [facility] INFUSION 4 N N DRIP [facility] &/BOLUS HOSPITA HOSPITA TECHNIQUE SUSCEPTIB 90699 [facility] LTY STDY 4 N N ANTIMICRB [facility] IAL HOSPITA HOSPITA MICRO/AGA R DILUTJ BLOOD 92438 [facility] COUNT 4 N N COMPLETE [facility] AUTO&AUTO HOSPITA HOSPITA DIFRNTL WBC URNLS DIP 32831 [facility] 4 N N STICK/TAB [facility] LET HOSPITA HOSPITA REAGENT AUTO MICROSCOP Y BLOOD 76828 [facility] COUNT 4 DIAGNOSTI DIAGNOSTI COMPLETE CS CS AUTOMATED ANTIBODY 93430 [facility] RUBELLA 4 DIAGNOSTI DIAGNOSTI CS CS ANTIBODY 91331 [facility] SCREEN 4 DIAGNOSTI DIAGNOSTI RBC EACH CS CS SERUM TECHNIQUE BLOOD 16033 [facility] TYPING 4 DIAGNOSTI DIAGNOSTI SEROLOGIC CS CS ABO IADNA 52099 [facility] NEISSERIA 4 DIAGNOSTI DIAGNOSTI CS CS GONORRHO[place] [address] [facility] HEPATITIS 4 DIAGNOSTI DIAGNOSTI B CS CS SURFACE ANTIGEN CYTP C/V 40073 [facility] AUTO THIN 4 DIAGNOSTI DIAGNOSTI LYR CS CS PREPJ SCR MNL RESCR PHYS IADNA 15477 [facility] CHLAMYDIA 4 DIAGNOSTI DIAGNOSTI CS CS TRACHOMAT IS AMPLIFIED PROBE TQ US PREG 13929 [place] ROVERT[place] UTERUS 4 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 REAL TIME SERV W/IMAGE FOUNDATIO DCMTN N TRANSVAG COLLECTIO 13264 [facility] N VENOUS 4 DIAGNOSTI DIAGNOSTI [place] [address] [place] SANCHEZ JAM 4 RADIOLOGY UTERUS LIMITED 1/> FETUSES CULTURE 09826 [facility] BACTERIAL 4 N N [facility] QUANTTATI HOSPITA HOSPITA VE COLONY COUNT URINE BASIC 70560 [facility] METABOLIC 4 N N PANEL [facility] [place] [address] [facility] 4 N N UTERUS 14 [facility] WK HOSPITA HOSPITA TRANSABDL GESTAT URINE 42444 [facility] 4 N N TEST [facility] VISUAL HOSPITA HOSPITA COLOR CMPRSN METHS GONADOTRO 07727 [facility] PIN 4 N N CHORIONIC [facility] HOSPITA HOSPITA QUANTITAT EMANUEL BLOOD 87542 [facility] COUNT 4 N N COMPLETE [facility] AUTO&AUTO HOSPITA HOSPITA DIFRNTL WBC URNLS DIP 14139 [facility] 4 N N STICK/TAB [facility] LET HOSPITA HOSPITA REAGENT AUTO MICROSCOP Y URINE 45938 [facility] DEPT HLTH DEPT VISUAL [facility]CO SCO COLOR CMPRSN METHS URINE 12759 [facility] 3 N N TEST [facility] VISUAL HOSPITA HOSPITA COLOR CMPRSN METHS BLOOD 00426 [facility] COUNT 3 N N COMPLETE [facility] AUTO&AUTO HOSPITA HOSPITA DIFRNTL WBC COLLECTIO 55723 [facility] N VENOUS 3 N N BLOOD [facility] [place] [address] [facility] SCALF MUNA ABDOMINAL 3 RADIOLOGY REAL TIME W/IMAGE LIMITED URINE 16250 [facility] 3 N N TEST [facility] VISUAL HOSPITA HOSPITA COLOR CMPRSN METHS BLOOD 17675 [facility] OCCULT 3 N N PEROXIDAS [facility] COMMUNITY E ACTV HOSPITA HOSPITA QUAL FECES 1-3 SPEC URNLS DIP 46451 [facility] 3 N N STICK/TAB [facility] LET HOSPITA HOSPITA REAGENT AUTO MICROSCOP Y BLOOD 61815 [facility] COUNT 3 N N COMPLETE [facility] AUTO&AUTO HOSPITA HOSPITA DIFRNTL WBC THROMBOPL 91078 [facility] ASTIN 3 N N TIME [facility] PARTIAL HOSPITA HOSPITA PLASMA/WH OLE BLOOD FIBRIN 00927 [facility] DGRADJ 3 N N PRODUCTS [facility] D-DIMER HOSPITA HOSPITA QUANTITAT EMANUEL PROTHROMB 50540 [facility] IN TIME 3 N N [facility] HOSPITA HOSPITA COLLECTIO 07362 [facility] N VENOUS 3 N N BLOOD [facility] VENIPUNCT HOSPITA HOSPITA URE COMPREHEN 00282 [facility] SIVE 3 N N METABOLIC [facility] PANEL HOSPITA HOSPITA NEURAXIAL 25062 [facility] 3 ANESTHESI MARTIN ANALG/ANE A GROUP S PLND PS VAGINAL DELIVERY OTHER 7359 [facility] MANUALLY 3 N N ASSISTED [facility] DELIVERY HOSPITA HOSPITA OTHER 7309 [facility] ARTIFICIA 3 N N L RUPTURE [facility] OF HOSPITA HOSPITA MEMBRANES GLUC BLD 82829 [facility] GLUC MNTR 2 N N DEV [facility] CLEARED HOSPITA HOSPITA FDA SPEC HOME USE Encounters Encounter Start End Date Code Location Performer Type Date [facility] - 7 7 [facility] OUT[facility] [place] 10[place] [facility] OUT[facility] 7 7 [facility], [facility] T VISIT 15 MINUTES EMERGENCY 55207 [facility] KATHERINE 7 7 [place] DEPARTMEN EMERGENCY T VISIT PHYS HIGH/URGE NT SEVERITY PERIODIC 86059 JOSE RODRIGUEZ PREVENTIV 7 7 MEDICAL E MED EST SERV PATIENT FOUNDATIO 18-39 YRS N EMERGENCY 40374 [facility] ERIK 7 7 [place] DEPARTMEN EMERGENCY T VISIT PHYS HIGH/URGE NT SEVERITY OFFICE 75867 [facility] OUT[facility]IEN 7 7 [facility] T VISIT 15 MINUTES OFFICE 33864 [facility] DOLORES OUTPATIEN 7 7 N URGENT T VISIT CARE 15 MINUTES EMERGENCY 50894 [facility] 7 7 [place] DEPARTMEN EMERGENCY T VISIT PHYS MODERATE SEVERITY OFFICE 90331 [facility] BANDA CONSULTAT 7 7 [facility] ION NEW/ESTAB PATIENT 40 MIN OFFICE 29635 [facility] OUTPATIEN 7 7 [facility] T VISIT 15 MINUTES OFFICE 33577 [facility] OUTPATIEN 7 7 [facility] T VISIT 5 MINUTES OFFICE 14415 [facility] OUTPATIEN 7 7 [facility] T VISIT 5 MINUTES OFFICE 12321 [facility] OUTPATIEN 7 7 [facility] T VISIT 5 MINUTES OFFICE 97627 [facility] OUTPATIEN 7 7 [facility] T VISIT 5 MINUTES OFFICE 55741 [facility] THOMPS[facility], OUTPATIEN 7 7 [facility] III T NEW 30 MINUTES [facility] 7 7 [facility] OUTPATI[facility] T HOSPITALS EMERGENCY 82066 7 7 [facility] DEPARTMEN E T VISIT HOSPITALS HIGH/URGE NT SEVERITY EMERGENCY 13067 [facility] 7 7 [place] DEPARTMEN PHYSICIAN T VISIT S ASSIST MODERATE SEVERITY EMERGENCY 45618 [facility] 7 7 N DEPARTMEN COMMUNTIY T VISIT HOSPITA MODERATE SEVERITY HOSPITAL [facility] - 7 7 N OUTPATIEN COMMUNTIY T HOSPITA EMERGENCY 20788 [facility] 7 7 [place] DEPARTMEN EMERGENCY T VISIT PHYS HIGH/URGE NT SEVERITY HOSPITAL [facility] - 7 7 N OUTPATIEN COMMUNTIY T HOSPITA EMERGENCY 54953 [facility] 7 7 N DEPARTMEN COMMUNTIY T VISIT HOSPITA LOW/MODER SEVERITY EMERGENCY 03036 [facility] 7 7 [place] DEPARTMEN EMERGENCY T VISIT PHYS MODERATE SEVERITY EMERGENCY 47889 [facility] 6 6 N DEPARTMEN COMMUNTIY T VISIT HOSPITA HIGH/URGE NT SEVERITY HOSPITAL [facility] - 6 6 N OUTPATIEN COMMUNTIY T HOSPITA EMERGENCY 14473 [facility] 6 6 [place] DEPARTMEN EMERGENCY T VISIT PHYS MODERATE SEVERITY OFFICE 44605 [facility] 6 AND T VISIT PEDIATRIC 15 S & INTER MINUTES OFFICE 64623 [facility] 6 6 ASTHMA III PRERNA T VISIT ASSOC OF 15 TH MINUTES EMERGENCY 86823 [facility] 6 6 N DEPARTMEN COMMUNTIY T VISIT HOSPITA MODERATE SEVERITY HOSPITAL [facility] - 6 6 N OUTPATIEN COMMUNTIY T HOSPITA HOSPITAL [facility] - 6 6 N OUTPATIEN COMMUNTIY T HOSPITA EMERGENCY 13915 [facility] CELLARO 6 6 [place] - YORBA DEPARTMEN EMERGENCY PAT T VISIT PHYS MODERATE SEVERITY EMERGENCY 13518 [facility] 6 6 N DEPARTMEN COMMUNTIY T VISIT HOSPITA LOW/MODER SEVERITY EMERGENCY 68814 [facility] OZOR MAR 6 6 [place] DEPARTMEN EMERGENCY T VISIT PHYS MODERATE SEVERITY OFFICE 29127 [facility] 6 6 GROUND ION FAMILY NEW/ESTAB CLINI PATIENT 60 MIN OFFICE 77396 [facility] RABIEE OUTPATIEN 6 6 N URGENT ABD T VISIT CARE 15 MINUTES [facility]OSP[facility] PERIOD[facility] 07431 JOSE BEARPITN PREVENTIV 6 6 MED[facility] E MED EST SERV PATIENT FOUNDATIO 18-39 YRS N OFFICE 15159 [facility] 6 6 AND T VISIT PEDIATRIC 15 S & INTER MINUTES EMERGENCY 19446 [facility] DEPT 6 6 [place] TESSIE VISIT EMERGENCY HIGH PHYS SEVERITY& THREAT FUN OFFICE 27852 [facility] OUTPATIEN 6 6 N URGENT ABD T VISIT CARE 15 MINUTES OFFICE 50034 [facility] 6 6 ASTHMA III PRERNA T VISIT ASSOC OF 15 TH MINUTES EMERGENCY 31158 [facility] CELLARO DEPT 6 6 [place] - YORBA VISIT EMERGENCY PAT HIGH PHYS SEVERITY& THREAT [facility] OFFICE 00449 [facility] OUTPATIEN 6 6 N URGENT ABD T VISIT CARE 25 MINUTES OFFICE 05729 [facility] 5 5 [place] ELENA T NEW 30 ORTHOPAED MINUTES [facility] EMERGENCY 88569 [facility] 5 5 [place] DEPARTMEN EMERGENCY T VISIT PHYS MODERATE SEVERITY EMERGENCY 04440 [facility] 5 5 N DEPARTMEN COMMUNTIY T VISIT HOSPITA LOW/MODER SEVERITY HOSPITAL [facility] - 5 5 N OUTPATIEN COMMUNTIY T HOSPITA EMERGENCY 73293 [facility] DEPT 5 5 [place] MON VISIT EMERGENCY HIGH PHYS SEVERITY& THREAT [facility] - 5 5 N OUTPATIEN COMMUNTIY T HOSPITA EMERGENCY 09950 [facility] 5 5 N DEPARTMEN COMMUNTIY T VISIT HOSPITA MODERATE SEVERITY OFFICE 42210 [facility] RODRIGUEZ OUTPATIEN 5 5 [facility] T VISIT SERV 15 FOUNDATIO MINUTES N EMERGENCY 37996 [facility] 5 5 N DEPARTMEN COMMUNTIY T VISIT HOSPITA MODERATE SEVERITY HOSPITAL [facility] - 5 5 N OUTPATIEN COMMUNTIY T HOSPITA EMERGENCY 49835 [facility] 5 5 [place] TESSIE DEPARTMEN EMERGENCY T VISIT PHYS HIGH/URGE NT SEVERITY OFFICE 32226 [facility] 5 5 ASTHMA III PRERNA T VISIT ASSOC OF 15 TH MINUTES EMERGENCY 40179 [facility] 5 5 [place] DEPARTMEN EMERGENCY T VISIT SERV MODERATE SEVERITY HOSPITAL [facility] - 5 5 N OUTPATIEN COMMUNTIY T HOSPITA EMERGENCY 59489 [facility] 5 5 N DEPARTMEN COMMUNTIY T VISIT HOSPITA LIMITED/M INOR PROB OFFICE 52844 [place] [facility] 5 5 [facility] T VISIT SERV 15 FOUNDATIO MINUTES N OFFICE 47457 [facility] RABI[facility] OUTPATIEN 5 5 N URGENT ABD T VISIT CARE 15 MINUTES OFFICE 08285 [facility] OUTPATIEN 5 5 N URGENT ABD T NEW 30 CARE MINUTES OFFICE 09202 [facility] 5 5 AST[facility] HEYDI T NEW 60 ASSOC OF MINUTES TH OFFICE 34767 [place] [facility] 5 5 [facility] T VISIT SERV 10 FOUNDATIO MINUTES N HOSPITAL [facility] - 5 5 N OUTPATIEN COMMUNTIY T HOSPITA EMERGENCY 91799 [facility] 5 5 N DEPARTMEN COMMUNTIY T VISIT HOSPITA LOW/MODER SEVERITY EMERGENCY 15657 [facility] MAR 5 5 [place] DEPARTMEN EMERGENCY T VISIT PHYS MODERATE SEVERITY OFFICE 50369 [place] [facility] 5 5 [facility] T VISIT SERV 15 FOUNDATIO MINUTES N OFFICE 69629 [place] [facility] 5 5 [facility] T VISIT SERV 15 FOUNDATIO MINUTES N EMERGENCY 63377 [facility] 5 5 N DEPARTMEN COMMUNTIY T VISIT HOSPITA LIMITED/M INOR PROB HOSPITAL [facility] - 5 5 N OUTPATIEN COMMUNTIY T HOSPITA OFFICE 81373 [place] [facility] 5 5 [facility] T VISIT SERV 15 FOUNDATIO MINUTES N OFFICE 07947 [facility] 5 5 COL COL T VISIT 10 MINUTES OFFICE 62073 [place] [facility] [facility] 5 5 [facility] T VISIT SERV 15 FOUNDATIO MINUTES N HOSPITAL [facility] - 5 5 N OUTPATIEN COMMUNTIY T HOSPITA EMERGENCY 42580 [facility] 5 5 N [facility] COMMUNTIY T VISIT HOSPITA HIGH/URGE NT SEVERITY OFFICE 69763 [place] [facility] [facility] 5 5 [facility] T VISIT SERV 15 FOUNDATIO MINUTES N OFFICE 72431 [place] [facility] 5 5 [facility] T VISIT SERV 15 FOUNDATIO MINUTES N OFFICE 85966 [place] [facility] [facility] 5 5 [facility] T VISIT SERV 15 FOUNDATIO MINUTES N HOSPITAL [facility] - 5 5 N OUTPATIEN COMMUNITY T HOSPITA EMERGENCY 22231 [facility] 5 5 N DEPARTMEN COMMUNITY T VISIT HOSPITA MODERATE SEVERITY OFFICE 17804 [place] [facility] 5 5 [facility] T VISIT SERV 15 FOUNDATIO MINUTES N OFFICE 34169 [place] [facility] 4 4 [facility] T VISIT SERV 15 FOUNDATIO MINUTES N HOSPITAL [facility] - 4 4 N [facility] COMMUNITY T HOSPITA EMERGENCY 46921 [facility] 4 4 N [facility] COMMUNITY T VISIT HOSPITA MODERATE SEVERITY OFFICE 17919 [place] [facility] [facility] 4 4 [facility] T VISIT SERV 15 FOUNDATIO MINUTES N OFFICE 03537 [place] [facility] 4 4 [facility] T VISIT SERV 15 FOUNDATIO MINUTES N OFFICE 41274 [facility] 4 4 COL COL T NEW 20 MINUTES EMERGENCY 72856 [facility] 4 4 N [facility] COMMUNITY T VISIT HOSPITA MODERATE SEVERITY HOSPITAL [facility] - 4 4 N [facility] COMMUNITY T HOSP[place] OFFICE 37863 [place] [facility] 4 4 [facility] T VISIT SERV 15 FOUNDATIO MINUTES N OFFICE 46521 [place] [facility] [facility] 4 4 [facility] T VISIT SERV 15 FOUNDATIO MINUTES N OFFICE 54948 [place] [facility] 4 4 [facility] T VISIT SERV 15 FOUNDATIO MINUTES N EMERGENCY 50178 [facility] 4 4 N [facility]/M INOR [facility]OB EMERGENCY 67355 [facility] 4 4 [place] [facility] EMERGENC[facility] T VISIT [facility] MODERATE [facility]VERITY HOSPITAL [facility] - 4 4 N 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 T VISIT SERV 15 FOUNDATIO MINUTES HOSPITAL [facility] - 4 4 N OUTPATIEN COMMUNITY T HOSPITA EMERGENCY 54544 [facility] 4 4 [place] DEPARTMEN EMERGENCY T VISIT PHYSI HIGH/URGE NT SEVERITY OFFICE 87795 JOSE RODRIGUEZ OUTPATIEN 4 4 [facility] T VISIT SERV 15 [facility]ERG[facility] 27550 [facility] CELLAROSI 4 4 [place] - YORBA DEPARTMEN EMERGENCY PAT T VISIT PHYSI HIGH/URGE NT SEVERITY OFFICE 85901 JOSE LAYNE OUTPATIEN 4 4 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 T [facility]ISIT SERV 25 [facility] - 4 [facility] HOSPITA EMERGENCY 04343 [facility] ELVA FILI 4 4 [place] DEPARTMEN EMERGENCY T VISIT PHYSI HIGH/URGE NT SEVERITY OFFICE 48514 RADHA [facility] OUTPATI[facility] VISIT [facility] DEPT HLTH DEPT 10 SCO SCO MINUTES EMERGENCY [id number] REHANA LLOYD 3 3 EMERGENCY TESSIE DEPARTMEN SERVICES T VISIT MODERATE SEVERITY HOSPITAL [facility] - 3 3 N [facility] 3 [facility] T HOSPITA EMERGENCY 78335 REHANA 3 3 EMERGENCY DEPARTMEN SERVICES T VISIT HIGH/URGE NT SEVERITY HOSPITAL [facility] - 3 3 N OUTPATIEN COMMUNITY T HOSPITA EMERGENCY 13824 [facility] MODERATE [facility]VERITY [facility]OSPITAL [facility] - 3 3 N [facility]IENT [facility] T HOSPITA EMERGENCY 30511 [facility] MOD[facility]ITY [facility] [place] [id number] 2 N [facility]
--- OUTSIDE RECORDS SUMMARY | 2017-02-19 09:25 | External Medical Summary Rpt | CCD ---
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 THERAPY 5 COL COL TQS 1/> REGIONS EACH 15 MINUTES CHIROPRAC 06757 [facility] TIC 5 COL COL MANIPULAT EMANUEL TX SPINAL 3-4 REGIONS APPL 44097 [facility] MCCORDESON MODALITY 5 COL COL 1/> AREAS ELEC STIMJ UNATTENDE D APPL 06456 [facility] M[facility]ESON MODALITY 5 COL COL 1/> AREAS TRACTION MECHANICA L APPL 13514 [facility] HO[facility]AND MODALITY 5 COL COL 1/> AREAS TRACTION MECHANICA L APPL 21207 [facility] HOLLAND MODALITY 5 COL COL 1/> AREAS ELEC STIMJ UNATTENDE D CHIROPRAC 84061 [facility] GRESHAMON TIC 5 COL COL MANIPULAT EMANUEL TX SPINAL 3-4 REGIONS US PREG 89151 [place] O'DIN[facility] UTERUS 5 MEDICAL ROLANDO REAL TIME SERV F/U FOUNDATIO TRNSABDL N PER FETUS APPLICATI 91900 [facility] ON 5 COL COL MODALITY 1/> AREAS HOT/COLD PACKS MANUAL 19437 [facility] GR[facility] THERAPY 5 COL COL TQS 1/> REGIONS EACH 15 MINUTES [facility] DIP 49786 [place] 5 MEDICAL WILL[facility] STICK/TAB SERV LET RGNT FOUNDATIO AUTO W/O N MICROSCOP Y IADNA 96168 [facility] NEISSERIA 5 DIAGNOSTI DIAGNOSTI CS CS GONORRHOE AE AMPLIFIED PROBE TQ URNLS DIP 24925 [place] 5 MEDICAL [facility] STICK/TAB SERV LET RGNT FOUNDATIO AUTO W/O N MICROSCOP Y MANUAL 99573 [facility] THERAPY 5 COL COL TQS 1/> REGIONS EACH 15 MINUTES CHIROPRAC 82297 [facility] MCCORDESON TIC 5 COL COL MANIPULAT EMANUEL TX SPINAL 3-4 REGIONS APPL 20651 [facility] HO[facility]AND MODALITY 5 COL COL 1/> AREAS ELEC STIMJ UNATTENDE D APPL 31237 [facility] MODALITY 5 COL COL 1/> AREAS TRACTION MECHANICA L SMR PRIM 72374 [place] SRC WET 5 MEDICAL WILLSON MOUNT SERV NFCT AGT FOUNDATIO N IADNA 45843 [facility] CHLAMYDIA 5 DIAGNOSTI DIAGNOSTI CS CS TRACHOMAT IS AMPLIFIED PROBE TQ URNLS DIP 03275 [facility] 5 N N STICK/TAB COMMUNITY COMMUNITY LET HOSPITA HOSPITA REAGENT AUTO MICROSCOP Y URNLS DIP 74807 [place] 5 MEDICAL [facility] STICK/TAB SERV LET RGNT FOUNDATIO AUTO W/O N MICROSCOP Y APPL 02189 [facility] MODALITY 5 COL COL 1/> AREAS TRACTION MECHANICA L APPL 07693 [facility] MODALITY 5 COL COL 1/> AREAS ELEC STIMJ UNATTENDE D CHIROPRAC 91592 [facility] MCCORDESON TIC 5 COL COL MANIPULAT EMANUEL TX SPINAL 3-4 REGIONS MANUAL 80905 [facility]AND THERAPY 5 COL COL TQS 1/> REGIONS EACH 15 MINUTES APPLICATI 85429 [facility] GRESHAMON ON 5 COL COL MODALITY 1/> AREAS HOT/COLD PACKS APPLICATI 68165 [facility] MCCORDESON ON 5 COL COL MODALITY 1/> AREAS HOT/COLD PACKS MANUAL 55299 [facility] THERAPY 5 COL COL TQS 1/> REGIONS EACH 15 MINUTES CHIROPRAC 82002 [facility] GRESHAMON TIC 5 COL COL MANIPULAT EMANUEL TX SPINAL 3-4 REGIONS APPL 55849 [facility] M[facility]ORDESON MODALITY 5 COL COL 1/> AREAS ELEC STIMJ UNATTENDE D APPL 90478 [facility] MODALITY 5 COL COL 1/> AREAS TRACTION MECHANICA L APPL 54947 [facility] MODALITY 4 COL COL 1/> AREAS TRACTION MECHANICA L APPL 45014 [facility] MODALITY 4 COL COL 1/> AREAS ELEC STIMJ UNATTENDE D CHIROPRAC 42732 [facility] TIC 4 COL COL MANIPULAT EMANUEL TX SPINAL 3-4 REGIONS US PREG 19121 [place] O'DINESH UTERUS 4 MEDICAL ROLANDO REAL TIME SERV F/U FOUNDATIO TRNSABDL N PER FETUS MANUAL 71166 [facility] THERAPY 4 COL COL TQS 1/> REGIONS EACH 15 MINUTES APPLICATI 60239 [facility] ON 4 COL COL MODALITY 1/> AREAS HOT/COLD PACKS [facility] DIP 77151 [place] 4 MEDICAL [place] STICK/TAB SERV LET RGNT FOUNDATIO AUTO W/O N MICROSCOP Y APPLICATI 79354 [facility] ON 4 COL COL MODALITY 1/> AREAS HOT/COLD PACKS MANUAL 39466 [facility] THERAPY 4 COL COL TQS 1/> REGIONS EACH 15 MINUTES CHIROPRAC 23239 [facility] GR[facility] TIC 4 COL COL MANIPULAT EMANUEL TX SPINAL 3-4 REGIONS APPL 93393 [facility] MODALITY 4 COL COL 1/> AREAS ELEC STIMJ UNATTENDE D APPL 27128 [facility] MODALITY 4 COL COL 1/> AREAS TRACTION MECHANICA L APPL 22149 [facility] MODALITY 4 COL COL 1/> AREAS TRACTION MECHANICA L APPL 77599 [facility] MODALITY 4 COL COL 1/> AREAS ELEC STIMJ UNATTENDE D CHIROPRAC 38748 [facility] TIC 4 COL COL MANIPULAT EMANUEL TX SPINAL 3-4 REGIONS MANUAL 86318 [facility] THERAPY 4 COL COL TQS 1/> REGIONS EACH 15 MINUTES APPLICATI 58792 [facility] HOLLAND ON 4 COL COL MODALITY 1/> AREAS HOT/COLD PACKS IAADIADOO 33926 [facility] 4 N N INFLUENZA [facility] HOSPITA COLLECTIO 09095 [facility] N VENOUS 4 DIAGNOSTI DIAGNOSTI BLOOD CS CS VENIPUNCT URE GLUCOSE 83559 [facility] TOLERANCE 4 DIAGNOSTI DIAGNOSTI TEST GTT CS CS 3 SPECIMENS GLUCOSE 94472 [facility] TOLERANCE 4 DIAGNOSTI DIAGNOSTI EA ADDL CS CS BEYOND 3 SPECIMENS APPLICATI 43361 [facility] ON 4 COL COL MODALITY 1/> AREAS HOT/COLD PACKS MANUAL 62700 [facility] THERAPY 4 COL COL TQS 1/> REGIONS EACH 15 MINUTES CHIROPRAC 37360 [facility] TIC 4 COL COL MANIPULAT EMANUEL TX SPINAL 3-4 REGIONS APPL 80374 [facility] MODALITY 4 COL COL 1/> AREAS TRACTION MECHANICA L APPL 36834 [facility] MODALITY 4 COL COL 1/> AREAS ELEC STIMJ UNATTENDE D COMPREHEN 80137 [facility] SIVE 4 DIAGNOSTI DIAGNOSTI METABOLIC CS CS PANEL GLUCOSE 39829 [facility] POST 4 DIAGNOSTI DIAGNOSTI GLUCOSE CS CS DOSE COLLECTIO 01946 [facility] N VENOUS 4 DIAGNOSTI DIAGNOSTI BLOOD CS CS VENIPUNCT URE BLOOD 32500 [facility] COUNT 4 DIAGNOSTI DIAGNOSTI COMPLETE CS CS AUTOMATED APPL 58018 [facility] MODALITY 4 COL COL 1/> AREAS TRACTION MECHANICA L APPL 19444 [facility] MODALITY 4 COL COL 1/> AREAS ELEC STIMJ UNATTENDE D MANUAL 30635 [facility] GRESHMAON THERAPY 4 COL COL TQS 1/> REGIONS EACH 15 MINUTES CHIROPRAC 24855 [facility] TIC 4 COL COL MANIPULAT EMANUEL TX SPINAL 3-4 REGIONS APPLICATI 59888 [facility] ON 4 COL COL MODALITY 1/> AREAS HOT/COLD PACKS APPLICATI 89156 [facility] ON 4 COL COL MODALITY 1/> AREAS HOT/COLD PACKS MANUAL 04844 [facility] THERAPY 4 COL COL TQS 1/> REGIONS EACH 15 MINUTES CHIROPRAC 49140 [facility] TIC 4 COL COL MANIPULAT EMANUEL TX SPINAL 3-4 REGIONS APPL 84128 HO[facility] GRESHAMON MODALITY 4 COL COL 1/> AREAS ELEC STIMJ UNATTENDE D APPL 18481 HOLALND GRESHAMON MODALITY 4 COL COL 1/> AREAS TRACTION MECHANICA L APPL 31877 [facility] GR[facility] MODALITY 4 COL COL 1/> AREAS TRACTION MECHANICA L APPL 97865 [facility] MODALITY 4 COL COL 1/> AREAS ELEC STIMJ UNATTENDE D CHIROPRAC 92699 [facility] TIC 4 COL COL MANIPULAT EMANUEL TX SPINAL 3-4 REGIONS MANUAL 90253 [facility] THERAPY 4 COL COL TQS 1/> REGIONS EACH 15 MINUTES APPLICATI 27440 [facility] ON 4 COL COL MODALITY 1/> AREAS HOT/COLD PACKS US PREG 63685 JOSE O'DINESH UTERUS 4 MEDICAL ROLANDO W/DETAIL SERV FOUNDATIO [place] 1[address] [place] [address] [facility] [place] FRITZ 4 RADIOLOGY RAY UTERUS LIMITED 1/> [place] [address] [facility] 4 N N UTERUS 14 [facility] HOSPITA HOSPITA TRANSABDL GESTAT CULTURE 78229 [facility] BCT 4 DIAGNOSTI DIAGNOSTI ISOL&[facility] PTV ID ISOLATE EA URINE CULTURE 03836 [facility] BACTERIAL 4 DIAGNOSTI DIAGNOSTI [facility] QUANTTATI VE COLONY COUNT URINE CUL BACT 06717 [facility] AEROBIC 4 N N ADDL COMMUNITY [facility] METHS HOSPITA HOSPITA DEFINITIV E EA ISOL CULTURE 95273 [facility] BACTERIAL 4 N N COMMUNITY COMMUNITY QUANTTATI HOSPITA HOSPITA VE COLONY COUNT URINE COMPREHEN 04749 [facility] SIVE 4 N N METABOLIC [facility] PANEL HOSPITA HOSPITA UROGRAPHY 86605 [facility] [place] POLA IV W/WO 4 RADIOLOGY RHO KUB W/WO TOMOGRAPH Y UROGRAPHY 43776 [facility] INFUSION 4 N N DRIP [facility] COMMUNITY &/BOLUS HOSPITA HOSPITA TECHNIQUE BLOOD 63675 [facility] COUNT 4 N N COMPLETE [facility] AUTO&AUTO HOSPITA HOSPITA DIFRNTL WBC URNLS DIP 66237 [facility] 4 N N STICK/TAB [facility] LET HOSPITA HOSPITA REAGENT AUTO MICROSCOP Y SUSCEPTIB 26343 [facility] LTY STDY 4 N N ANTIMICRB [facility] IAL HOSPITA HOSPITA MICRO/AGA R DILUTJ ANTIBODY 41214 [facility] RUBELLA 4 DIAGNOSTI DIAGNOSTI [facility] COLLECTIO 30868 [facility] N VENOUS 4 DIAGNOSTI DIAGNOSTI BLOOD [facility] VENIPUNCT URE ANTIBODY 13897 [facility] SCREEN 4 DIAGNOSTI DIAGNOSTI RBC EACH CS SERUM TECHNIQUE BLOOD 36216 [facility] TYPING 4 DIAGNOSTI DIAGNOSTI SEROLOGIC CS ABO IADNA 63938 [facility] NEISSERIA 4 DIAGNOSTI DIAGNOSTI [facility] GONORRHOE [place] [address] [facility] HEPATITIS 4 DIAGNOSTI DIAGNOSTI B CS SURFACE ANTIGEN CYTP C/V 66037 [facility] AUTO THIN 4 DIAGNOSTI DIAGNOSTI LYR CS PREPJ SCR MNL RESCR PHYS BLOOD 35816 [facility] COUNT 4 DIAGNOSTI DIAGNOSTI COMPLETE CS CS AUTOMATED US PREG 55456 JOSE LAYNE UTERUS 4 MEDICAL NUCLEAR REACTOR TECHNICIAN REAL TIME SERV W/IMAGE FOUNDATIO DCMTN N TRANSVAG IADNA 32502 [facility] CHLAMYDIA 4 DIAGNOSTI DIAGNOSTI CS CS TRACHOMAT IS AMPLIFIED PROBE TQ CULTURE 82354 [facility] BACTERIAL 4 N N [facility] QUANTTATI HOSPITA [place] [address] [facility] 4 N N UTERUS 14 [facility] WK HOSPITA HOSPITA TRANSABDL / [place] [address] CNTR[facility] JOSE MARY 4 RADIOLOGY UTERUS LIMITED / FETUSES BASIC 47724 [facility] METABOLIC 4 N N PANEL [facility] CALCIUM HOSPITA HOSPITA TOTAL BLOOD 24692 [facility] COUNT 4 N N COMPLETE [facility] AUTO&AUTO HOSPITA HOSPITA DIFRNTL WBC URNLS DIP 95049 [facility] 4 N N STICK/TAB [facility] LET HOSPITA HOSPITA REAGENT AUTO MICROSCOP Y URINE 18382 [facility] 4 N N TEST [facility] VISUAL HOSPITA HOSPITA COLOR CMPRSN METHS GONADOTRO 53293 [facility] PIN 4 N N CHORIONIC [facility] HOSPITA HOSPITA QUANTITAT EMANUEL URINE 07017 [facility] DEPT VISUAL SCO SCO COLOR CMPRSN METHS URINE 69268 [facility] 3 N N TEST [facility] VISUAL HOSPITA HOSPITA COLOR CMPRSN METHS BLOOD 35466 [facility] COUNT 3 N N COMPLETE [facility] AUTO&AUTO HOSPITA HOSPITA DIFRNTL WBC COLLECTIO 05133 [facility] N VENOUS 3 N N BLOOD [facility] [place] [address] [facility] ABDOMINAL 3 N N REAL [facility] TIME HOSPITA HOSPITA W/IMAGE LIMITED THROMBOPL 34355 [facility] ASTIN 3 N N TIME [facility] PARTIAL HOSPITA HOSPITA PLASMA/WH OLE BLOOD COMPREHEN 09043 [facility] SIVE 3 N N METABOLIC [facility] PANEL HOSPITA HOSPITA COLLECTIO 16784 [facility] N VENOUS 3 N N BLOOD [facility] VENIPUNCT HOSPITA HOSPITA URE PROTHROMB 16081 [facility] IN TIME 3 N N [facility] HOSPITA HOSPITA FIBRIN 44082 [facility] DGRADJ 3 N N PRODUCTS [facility] D-DIMER HOSPITA HOSPITA QUANTITAT EMANUEL URINE 68135 [facility] 3 N N TEST [facility] VISUAL HOSPITA HOSPITA COLOR CMPRSN METHS BLOOD 96375 [facility] COUNT 3 N N COMPLETE [facility] AUTO&AUTO HOSPITA HOSPITA DIFRNTL WBC BLOOD 73219 [facility] OCCULT 3 N N PEROXIDAS [facility] E ACTV HOSPITA HOSPITA QUAL FECES 1-3 SPEC URNLS DIP 18849 [facility] 3 N N STICK/TAB [facility] LET HOSPITA HOSPITA REAGENT AUTO MICROSCOP Y OTHER 7359 [facility] MANUALLY 3 N N ASSISTED [facility] DELIVERY HOSPITA HOSPITA OTHER 7309 [facility] ARTIFICIA 3 N N L RUPTURE [facility] OF HOSPITA HOSPITA MEMBRANES NEURAXIAL 66464 [facility] 3 ANESTHESI MARTIN ANALG/ANE A GROUP S PLND PS VAGINAL DELIVERY GLUC BLD 35359 [facility] GLUC MNTR 2 N N DEV [facility] CLEARED HOSPITA HOSPITA FDA SPEC HOME USE Encounters Encounter Start End Date Code Location Performer Type Date [facility] - 7 7 [facility] T [facility] OFFICE 49759 [facility] 7 7 [facility] [employer] T VISIT 15 MINUTES EMERGENCY 41792 [facility] 7 7 [place] DEPARTMEN EMERGENCY T VISIT PHYS HIGH/URGE NT SEVERITY PERIODIC 93672 [place] PREVENTIV 7 7 MEDICAL E MED EST SERV PATIENT FOUNDATIO 18-39 YRS N EMERGENCY 64525 [facility] 7 7 [place] DEPARTMEN EMERGENCY T VISIT PHYS HIGH/URGE NT SEVERITY OFFICE 36587 [facility] 7 7 [facility] T VISIT 15 MINUTES OFFICE 76437 [facility] OUTPATIEN 7 7 N URGENT T VISIT CARE 15 MINUTES EMERGENCY 05522 [facility] 7 7 [place] DEPARTMEN EMERGENCY T VISIT PHYS MODERATE SEVERITY OFFICE 59762 [facility] 7 7 [facility] ION NEW/ESTAB PATIENT 40 MIN OFFICE 26521 [facility] 7 7 [facility] T VISIT 15 MINUTES OFFICE 67864 [facility] 7 7 [facility] T VISIT 5 MINUTES OFFICE 67094 [facility] 7 7 [facility] T VISIT 5 MINUTES OFFICE 46737 [facility] 7 7 [facility] T VISIT 5 MINUTES OFFICE 88781 [facility] 7 7 [facility] T VISIT 5 MINUTES OFFICE 00618 [facility] DONNA [facility] 7 7 [facility] III T NEW 30 MINUTES [facility] - 7 7 [facility] OUTPATI[facility] T HOSPITALS EMERGENCY 74740 7 7 [facility] DEPARTMEN E T VISIT HOSPITALS HIGH/URGE NT SEVERITY EMERGENCY 55300 [facility] 7 7 [place] DEPARTMEN PHYSICIAN T VISIT S ASSIST MODERATE SEVERITY EMERGENCY 15204 [facility] 7 7 [place] DEPARTMEN EMERGENCY T VISIT PHYS HIGH/URGE NT SEVERITY HOSPITAL [facility] - 7 7 N OUTPATIEN COMMUNTIY T HOSPITA EMERGENCY 22393 [facility] 7 7 N DEPARTMEN COMMUNTIY T VISIT HOSPITA MODERATE SEVERITY HOSPITAL [facility] - 7 7 N OUTPATIEN COMMUNTIY T HOSPITA EMERGENCY 96917 [facility] 7 7 [place] DEPARTMEN EMERGENCY T VISIT PHYS MODERATE SEVERITY EMERGENCY 03207 [facility] 7 7 N DEPARTMEN COMMUNTIY T VISIT HOSPITA LOW/MODER SEVERITY [facility]OSPITAL [facility] - 6 6 N OUTPATIEN COMMUNTIY T HOSPITA EMERGENCY 32851 [facility] 6 6 [place] DEPARTMEN EMERGENCY T VISIT PHYS MODERATE SEVERITY EMERGENCY 93870 [facility] 6 6 N DEPARTMEN COMMUNTIY T VISIT HOSPITA HIGH/URGE NT SEVERITY OFFICE 46064 [facility] OUTPATIEN 6 6 AND T VISIT PEDIATRIC 15 S & INTER MINUTES OFFICE 11904 [facility] 6 6 ASTHMA III PRERNA T VISIT ASSOC OF 15 TH MINUTES [facility] - 6 6 N OUTPATIEN COMMUNTIY T HOSPITA EMERGENCY 46835 [facility] 6 6 [place] TESSIE DEPARTMEN EMERGENCY T VISIT PHYS MODERATE SEVERITY [facility]OSPITAL [facility] - 6 6 N OUTPATIEN COMMUNTIY T HOSPITA EMERGENCY 05214 [facility] 6 6 [place] [facility] Y[place] DEPARTMEN EMERGENCY PAT T VISIT PHYS MODERATE SEVERITY EMERGENCY 52011 [facility] 6 6 N DEPARTMEN COMMUNTIY T VISIT HOSPITA LOW/MODER SEVERITY EMERGENCY 47443 [facility] MAR 6 6 [place] DEPARTMEN EMERGENCY T VISIT PHYS MODERATE SEVERITY OFFICE 42009 [facility] CONS[facility]AT 6 6 GROUND ION FAMILY NEW/ESTAB CLINI PATIENT 60 MIN OFFICE 99885 [facility] OUTPATIEN 6 6 N URGENT ABD T VISIT CARE 15 MINUTES PERIODIC 85989 JOSE GONZALESAll PREVENTIV 6 6 MEDICAL WILLSON E MED EST SERV PATIENT FOUNDATIO 18-39 YRS N HOSPITAL [facility]IVERS[facility] - 6 6 Y [facility] T OFFICE 28596 [facility] OUTPATIEN 6 6 AND T VISIT PEDIATRIC 15 S & INTER MINUTES EMERGENCY 00459 [facility] DEPT 6 6 [place] TESSIE VISIT EMERGENCY HIGH PHYS SEVERITY& THREAT FUNJ OFFICE 38592 [facility] URGENT ABD T VISIT CARE 15 MINUTES OFFICE 63564 [facility] 6 6 ASTHMA III PRERNA T VISIT ASSOC OF 15 TH MINUTES EMERGENCY 70476 [facility] DEPT 6 6 [place] VISIT EMERGENCY PAT HIGH PHYS SEVERITY& THREAT FUN OFFICE 87267 [facility] N URGENT ABD T VISIT CARE 25 MINUTES OFFICE 25946 [facility] 5 [place] ELENA T NEW 30 ORTHOPAED MINUTES [facility] EMERGENC[facility] 97913 [facility] 5 5 [place] DEPARTMEN EMERGENCY T VISIT PHYS MODERATE SEVERITY HOSPITAL [facility] - 5 5 N OUTPATIEN COMMUNTIY T HOSPITA EMERGENCY 80833 [facility] 5 5 N DEPARTMEN COMMUNTIY T VISIT HOSPITA LOW/MODER SEVERITY EMERGENCY 77010 [facility] 5 5 [place] MON VISIT EMERGENCY HIGH PHYS SEVERITY& THREAT [facility] - 5 5 N OUTPATIEN COMMUNTIY T HOSPITA EMERGENCY 24734 [facility] 5 5 N DEPARTMEN COMMUNTIY T VISIT HOSPITA MODERATE SEVERITY OFFICE 96823 [facility]ZAL[facility]N OUTPATIEN 5 5 [facility] T VISIT SERV 15 [facility] MINUTES N HOSPITAL [facility] - 5 5 N OUTPATIEN COMMUNTIY T HOSPITA EMERGENCY 02337 [facility] 5 5 [place] TESSIE DEPARTMEN EMERGENCY T VISIT PHYS HIGH/URGE NT SEVERITY EMERGENCY 09895 [facility] 5 5 N DEPARTMEN COMMUNTIY T VISIT HOSPITA MODERATE SEVERITY OFFICE 88022 [facility] 5 5 ASTHMA III PRERNA T VISIT ASSOC OF 15 TH MINUTES EMERGENCY 93452 [facility] 5 5 [place] DEPARTMEN EMERGENCY T VISIT SERV MODERATE SEVERITY HOSPITAL [facility] - 5 5 N OUTPATIEN COMMUNTIY T HOSPITA EMERGENCY 68675 [facility] 5 5 N DEPARTMEN COMMUNTIY T VISIT HOSPITA LIMITED/M INOR PROB OFFICE 74631 JOSE RODRIGUEZ OUTPATIEN 5 5 [facility] T VISIT SERV 15 FOUNDATIO MINUTES N OFFICE 32981 [facility] RABIEE OUTPATIEN 5 5 N URGENT ABD T VISIT CARE 15 MINUTES OFFICE 57772 [facility] OUTPATIEN 5 5 N URGENT ABD T NEW 30 CARE MINUTES OFFICE 47231 [facility] 5 5 ASTHMA HEYDI T NEW 60 ASSOC OF MINUTES TH OFFICE 96466 [facility] RODRIGUEZ OUTPATIEN 5 5 [facility] T VISIT SERV 10 FOUNDATIO MINUTES N EMERGENCY 75394 [facility] 5 5 N DEPARTMEN COMMUNTIY T VISIT HOSPITA LOW/MODER SEVERITY [facility]PITAL [facility] - 5 5 N OUTPATIEN COMMUNTIY T HOSPITA EMERGENCY 82355 [facility] 5 5 [place] DEPARTMEN EMERGENCY T VISIT PHYS MODERATE SEVERITY OFFICE 26789 [facility] 5 5 [facility] T VISIT SERV 15 [facility]OUND[facility] MINUTES N OFFICE 02760 [facility] 5 5 [facility] T VISIT SERV 15 FOUNDATIO MINUTES N [facility]OSPITAL [facility] - 5 5 N OUTPATIEN COMMUNTIY T HOSPITA EMERGENCY 64775 [facility] 5 5 N DEPARTMEN COMMUNTIY T VISIT HOSPITA LIMITED/M INOR PROB OFFICE 28651 [place] [facility] 5 5 [facility] T VISIT SERV 15 [facility] MINUTES N OFFICE 95181 [facility] 5 5 [facility] T VISIT SERV 15 FOUNDATIO MINUTES N OFFICE 57815 [facility] 5 5 COL COL T VISIT 10 MINUTES [facility]OSPITAL [facility] - 5 5 N OUTPATIEN COMMUNTIY T HOSPITA EMERGENCY 22038 [facility] 5 5 [place] - YORBA DEPARTMEN EMERGENCY PAT T VISIT PHYS HIGH/URGE NT SEVERITY OFFICE 75503 [facility] 5 5 [facility] T VISIT SERV 15 FOUND[facility] MINUTES N OFFICE 48928 [facility] 5 5 [facility] T VISIT SERV 15 [facility] MINUTES N OFFICE 74539 [facility] 5 5 [facility] T [facility]ISIT SERV 15 FOUNDATIO MINUTES N EMERGENCY 32589 [facility] 5 5 N DEPARTMEN COMMUNITY T VISIT HOSPITA MODERATE SEVERITY [facility] - 5 5 N OUTPATIEN COMMUNITY T [facility]OSP[facility] OFFICE 01204 [facility] 5 5 [facility] T VISIT SERV 15 [facility]OUND[facility] MINUTES N OFFICE 20255 [facility] 4 4 [facility] T VISIT SERV 15 FOUNDAT[facility] MINUTES N EMERGENCY 13064 [facility] 4 4 N [facility] COMMUNITY T VISIT HOSPITA MODERATE SEVERITY HOSPITAL [facility] - 4 4 N OUTPATIEN COMMUNITY T [facility]OSP[facility] OFFICE 10522 [facility] 4 4 [facility] T VISIT SERV 15 FOUNDAT[facility] MINUTES N OFFICE 82483 [facility] 4 4 [facility] T [facility]ISIT SERV 15 FOUNDATIO MINUTES N OFFICE 72085 [facility] 4 4 COL COL T NEW MINUTES OFFICE 38155 [place] [facility] 4 4 [facility] T VISIT SERV 15 [facility]OUNDAT[facility] MINUTES N [facility]OSPITAL [facility] - 4 4 N OUTPATI COMMUNITY T HOSPITA EMERGENCY [id number] [facility] 4 4 N [facility] COMMUNITY T VISIT HOSPITA MODERATE SEVERITY OFFICE 59938 [facility] T VISIT SERV 15 [facility] MINUTES [place] OFFICE 60570 [place] [facility] 4 [facility] T VISIT SERV 15 FOUNDATIO MINUTES N EMERGENCY 24600 [facility] 4 4 [place] EMERGENCY T VISIT PHYS MODERATE SEVERITY EMERGENCY 00100 [facility] 4 4 N [facility] COMMUNITY T VISIT HOSPITA LIMITED/M INOR [facility] 61859 [place] [facility] 4 [facility] T VISIT SERV 15 FOUNDAT[facility] MINUTES N OFFICE 66691 [place] [facility] 4 4 MEDICAL NUCLEAR REACTOR TECHNICIAN T VISIT SERV 15 FOUNDATIO MINUTES EMERGENCY 90954 [facility] 4 4 N [facility] COMMUNITY T VISIT HOSPITA HIGH/URGE NT SEVERITY HOSPITAL [facility] - 4 4 N [facility] HOSP[facility] OFF[facility] 57588 [facility] T [facility]ISIT SERV 15 FOUNDATIO MINUTES EMERGENCY 28093 [facility] 4 4 N [facility] COMMUNITY T VISIT HOSPITA HIGH/URGE NT SEVERITY HOSPITAL [facility] - 4 4 N [facility] T HOSPITA OFFICE 95829 [facility] 4 4 MEDICAL NUCLEAR REACTOR TECHNICIAN T VISIT SERV 25 FOUNDATIO MINUTES EMERGENCY 57128 [facility] 4 4 N [facility] T VISIT HOSPITA HIGH/URGE NT SEVERITY HOSPITAL [facility] - 4 4 N [facility] T HOSPITA OFFICE 88393 [facility] 4 [facility] VISIT HLTH DEPT HLTH DEPT 10 SCO SCO MINUTES EMERGENCY 85576 REHANA LLOYD 3 3 EMERGENCY TESSIE DEPARTMEN SERVICES T VISIT MODERATE SEVERITY HOSPITAL [facility] - 3 3 N [facility] T HOSPCRITICAL ACCESS HOSPITAL [facility]OSPITAL [facility] - 3 3 N [facility] T HOSPITA EMERGENCY [id number] REHANA 3 3 EMERGENCY DEPARTMEN SERVICES T VISIT HIGH/URGE NT SEVERITY EMERGENCY 74121 [facility] 3 3 N [facility] COMMUNITY T VISIT HOSPITA MODERATE [facility]VERITY HOSPITAL [facility] - 3 3 N [facility] T HOSPCRITICAL ACCESS HOSPITAL [facility] 3 3 N INPATIENT COMMUNITY [facility]PCR[facility] [place] [id number] 2 N [facility] HOSPCRITICAL ACCESS HOSPITAL EMERGENCY 83385 [facility] 2 2 N [facility] [place] [address] 2 N [facility] HOSPITA
--- OUTSIDE RECORDS SUMMARY | 2017-02-19 09:25 | External Medical Summary Rpt | CCD ---
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 [facility] 4 COL COL TQS 1/> REGIONS EACH 15 MINUTES APPLICATI 21388 [facility] ON 4 COL COL MODALITY 1/> AREAS HOT/COLD PACKS IAADIADOO 28896 [facility] 4 N N INFLUENZA [facility] COLLECT[facility] 70167 [facility] N VENOUS 4 DIAGNOSTI DIAGNOSTI BLOOD CS CS VENIPUNCT URE GLUCOSE 95155 [facility] TOLERANCE 4 DIAGNOSTI DIAGNOSTI TEST GTT CS CS 3 SPECIMENS GLUCOSE 69258 [facility] TOLERANCE 4 DIAGNOSTI DIAGNOSTI EA ADDL CS CS BEYOND 3 SPECIMENS APPLICATI 27912 [facility] LIN[facility] ON 4 COL COL MODALITY 1/> AREAS HOT/COLD PACKS MANUAL 25870 [facility] THERAP[facility] 4 COL COL TQS 1/> REGIONS EACH 15 MINUTES CHIROPRAC 53486 [facility] LIN[facility] TIC 4 COL COL MANIPULAT EMANUEL TX SPINAL 3-4 REGIONS APPL 53034 [facility] MODALITY 4 COL COL 1/> AREAS TRACTION MECHANICA L APPL 35122 [facility] MODALITY 4 COL COL 1/> AREAS ELEC STIMJ UNATTENDE D COMPREHEN 09813 [facility] SIVE 4 DIAGNOSTI DIAGNOSTI METABOLIC CS CS PANEL GLUCOSE 00987 [facility] POST 4 DIAGNOSTI DIAGNOSTI GLUCOSE CS CS DOSE COLLECTIO 42997 [facility] N VENOUS 4 DIAGNOSTI DIAGNOSTI BLOOD CS CS VENIPUNCT URE BLOOD 67322 [facility] COUNT 4 DIAGNOSTI DIAGNOSTI COMPLETE CS CS AUTOMATED APPL 20755 [facility] MODALITY 4 COL COL 1/> AREAS TRACTION MECHANICA L APPL 98192 [facility] MODALITY 4 COL COL 1/> AREAS ELEC STIMJ UNATTENDE D MANUAL 01945 [facility] 4 COL COL TQS 1/> REGIONS EACH 15 MINUTES CHIROPRAC 66494 [facility] TIC 4 COL COL MANIPULAT EMANUEL TX SPINAL 3-4 REGIONS APPLICATI 07239 [facility] ON 4 COL COL MODALITY 1/> AREAS HOT/COLD PACKS APPLICATI 30771 [facility] ON 4 COL COL MODALITY 1/> AREAS HOT/COLD PACKS MANUAL 39152 [facility]ERAP[facility] 4 COL COL TQS 1/> REGIONS EACH 15 MINUTES CHIROPRAC 75204 [facility] TIC 4 COL COL MANIPULAT EMANUEL TX SPINAL 3-4 REGIONS APPL 07316 [facility] MODALITY 4 COL COL 1/> AREAS ELEC STIMJ UNATTENDE D APPL 77503 [facility] MODALITY 4 COL COL 1/> AREAS TRACTION MECHANICA L APPL 77307 [facility] MODALITY 4 COL COL 1/> AREAS TRACTION MECHANICA L APPL 76318 [facility] MODALITY 4 COL COL 1/> AREAS ELEC STIMJ UNATTENDE D CHIROPRAC 04919 [facility] TIC 4 COL COL MANIPULAT EMANUEL TX SPINAL 3-4 REGIONS MANUAL 83552 [facility] 4 COL COL TQS 1/> REGIONS EACH 15 MINUTES APPLICATI 31855 [facility] ON 4 COL COL MODALITY 1/> AREAS HOT/COLD [place]S [place] PREG 20418 JOSE O'DINESH UTERUS 4 MEDICAL ROLANDO W/DETAIL SERV FOUNDATIO [place] 1ST [place] [address] [place] FRITZ 4 RADIOLOGY RAY UTERUS LIMITED 1/> [place] [address] [facility] 4 N N UTERUS 14 [facility] HOSPITA HOSPITA TRANSABDL GESTAT CULTURE 18261 [facility] BCT 4 DIAGNOSTI DIAGNOSTI ISOL&PRSM [facility] PTV ID ISOLATE EA URINE CULTURE 92545 [facility] BACTERIAL 4 DIAGNOSTI DIAGNOSTI [facility] QUANTTATI VE COLONY COUNT URINE CUL BACT 50230 [facility] AEROBIC 4 N N ADDL COMMUNITY [facility] HOS[facility]ITA HOSPITA DEFINITIV E EA ISOL CULTURE 96786 [facility] BACTERIAL 4 N N COMMUNITY COMMUNITY QUANTTATI HOSPITA HOSPITA VE COLONY COUNT URINE COMPREHEN 21352 [facility] SIVE 4 N N METABOLIC [facility] PANEL HOSPITA HOSPITA UROGRAPHY 39646 [facility] [place] POLA IV W/WO 4 RADIOLOGY RHO KUB W/WO TOMOGRAPH Y UROGRAPHY 53954 [facility] INFUSION 4 N N DRIP [facility] COMMUNITY &/BOLUS HOSPITA HOSPITA TECHNIQUE BLOOD 76917 [facility] COUNT 4 N N COMPLETE [facility] AUTO&AUTO HOSPITA HOSPITA DIFRNTL WBC URNLS DIP 00368 [facility] 4 N N STICK/TAB [facility] LET HOSPITA HOSPITA REAGENT AUTO MICROSCOP Y SUSCEPTIB 49612 [facility] LTY STDY 4 N N ANTIMICRB [facility] IAL HOSPITA HOSPITA MICRO/AGA R DILUTJ ANTIBODY 82162 [facility] RUBELLA 4 DIAGNOSTI DIAGNOSTI [facility] COLLECTIO 93167 [facility] N VENOUS 4 DIAGNOSTI DIAGNOSTI BLOOD [facility] VENIPUNCT URE ANTIBODY 50244 [facility] SCREEN 4 DIAGNOSTI DIAGNOSTI RBC EACH CS SERUM TECHNIQUE BLOOD 10565 [facility] TYPING 4 DIAGNOSTI DIAGNOSTI SEROLOGIC CS ABO IADNA 10128 [facility] NEISSERIA 4 DIAGNOSTI DIAGNOSTI [facility] GONORRHOE [place] [address] [facility] HEPATITIS 4 DIAGNOSTI DIAGNOSTI B CS SURFACE ANTIGEN CYTP C/V 61575 [facility] AUTO THIN 4 DIAGNOSTI DIAGNOSTI LYR CS PREPJ SCR MNL RESCR PHYS BLOOD 83476 [facility] COUNT 4 DIAGNOSTI DIAGNOSTI COMPLETE CS CS AUTOMATED [place] PREG 57928 JOSE LAYNE UTERUS 4 MEDICAL GUITAR MAKER REAL TIME SERV W/IMAGE FOUNDATIO DCMTN N TRANSVAG IADNA 36810 [place] [employer] [facility] CHLAMYDIA 4 DIAGNOSTI DIAGNOSTI CS CS TRACHOMAT IS AMPLIFIED PROBE TQ CULTURE 77951 [facility] BACTERIAL 4 N N [facility] QUANTTATI HOSPITA [place] [address] [facility] 4 N N UTERUS 14 [facility] WK HOSPITA HOSPITA TRANSABDL / [place] [address] CNTRL JOSE MARY 4 RADIOLOGY UTERUS LIMITED / FETUSES BASIC 50040 [facility] METABOLIC 4 N N PANEL [facility] CALCIUM HOSPITA HOSPITA TOTAL BLOOD 16930 [facility] COUNT 4 N N COMPLETE [facility] AUTO&AUTO HOSPITA HOSPITA DIFRNTL WBC URNLS DIP 68079 [facility] 4 N N STICK/TAB [facility] LET HOSPITA HOSPITA REAGENT AUTO MICROSCOP Y URINE 66202 [facility] 4 N N TEST [facility] VISUAL HOSPITA HOSPITA COLOR CMPRSN [facility] GONADOTRO 37049 [facility] PIN 4 N N CHORIONIC [facility] HOSPITA HOSPITA QUANTITAT EMANUEL URINE 79674 [facility] TEST HLTH DEPT HLTH DEPT VISUAL SCO SCO COLOR CMPRSN METHS URINE 90236 [facility] 3 N N TEST [facility] VISUAL HOSPITA HOSPITA COLOR CMPRSN [facility] BLOOD 50144 [facility] COUNT 3 N N COMPLETE [facility] AUTO&AUTO HOSPITA HOSPITA DIFRNTL WBC COLLECTIO 78845 [facility] N VENOUS 3 N N BLOOD [facility] [place] [address] [facility] ABDOMINAL 3 N N REAL [facility] TIME HOSPITA HOSPITA W/IMAGE LIMITED THROMBOPL 14511 [facility] ASTIN 3 N N TIME [facility] PARTIAL HOSPITA HOSPITA PLASMA/WH OLE BLOOD COMPREHEN 60112 [facility] SIVE 3 N N METABOLIC [facility] PANEL HOSPITA HOSPITA COLLECTIO 68059 [facility] N VENOUS 3 N N BLOOD [facility] VENIPUNCT HOSPITA HOSPITA URE PROTHROMB 40951 [facility] IN TIME 3 N N [facility] HOSPITA HOSPITA FIBRIN 82849 [facility] DGRADJ 3 N N PRODUCTS [facility] D-DIMER HOSPITA HOSPITA QUANTITAT EMANUEL URINE 89000 [facility] 3 N N TEST [facility] VISUAL HOSPITA HOSPITA COLOR CMPRSN METHS BLOOD 28009 [facility] COUNT 3 N N COMPLETE [facility] AUTO&AUTO HOSPITA HOSPITA DIFRNTL WBC BLOOD 52931 [facility] OCCULT 3 N N PEROXIDAS [facility] E ACTV HOSPITA HOSPITA QUAL FECES 1-3 SPEC URNLS DIP 79165 [facility] 3 N N STICK/TAB [facility] LET HOSPITA HOSPITA REAGENT AUTO MICROSCOP Y OTHER 7359 [facility] MANUALLY 3 N N ASSISTED [facility] DELIVERY HOSPITA HOSPITA OTHER 7309 [facility] ARTIFICIA 3 N N L RUPTURE [facility] OF HOSPITA HOSPITA MEMBRANES NEURAXIAL 96474 [place] [facility] 3 ANESTHESI MARTIN ANALG/ANE A GROUP S PLND PS VAGINAL DELIVERY GLUC BLD 23900 [facility] GLUC MNTR 2 N N DEV [facility] CLEARED HOSPITA HOSPITA FDA SPEC HOME USE Encounters Encounter Start End Date Code Location Performer Type Date [facility] - 7 7 [facility] T [facility] OFFICE 02267 [place] [facility] 7 7 [employer] T VISIT 15 MINUTES EMERGENCY 93071 [facility] 7 7 [place] DEPARTMEN EMERGENCY T VISIT PHYS HIGH/URGE NT SEVERITY PERIODIC 21420 [place] PREVENTIV 7 7 MEDICAL E MED EST SERV PATIENT FOUNDATIO 18-39 YRS N [facility]ERGENCY 26556 [facility] [place] DEPARTMEN EMERGENCY T VISIT PHYS HIGH/URGE NT SEVERITY OFFICE 14298 [facility] 7 7 [facility] T VISIT 15 MINUTES OFFICE 93257 [facility] OUTPATIEN 7 7 N URGENT T VISIT CARE 15 MINUTES EMERGENCY 87592 [facility] 7 7 [place] DEPARTMEN EMERGENCY T VISIT PHYS MODERATE SEVERITY OFFICE 16358 [facility] 7 7 [facility] ION NEW/ESTAB PATIENT 40 MIN OFFICE 39267 [facility] 7 7 [facility] T VISIT 15 MINUTES OFFICE 03884 [facility] 7 7 [facility] T VISIT 5 MINUTES OFFICE 77423 [facility] 7 7 [facility] T VISIT 5 MINUTES OFFICE 44018 [facility] 7 7 [facility] T VISIT 5 MINUTES OFFICE 46702 [facility] 7 7 [facility] T VISIT 5 MINUTES OFFICE 43336 [facility] 7 7 [facility] III T NEW 30 MINUTES [facility] - 7 7 [facility] OUT[facility] E T HOSPITALS EMERGENCY 11081 7 7 [facility] DEPARTMEN E T VISIT HOSPITALS HIGH/URGE NT SEVERITY EMERGENCY 91378 [facility] 7 7 [place] DEPARTMEN PHYSICIAN T VISIT S ASSIST MODERATE SEVERITY EMERGENCY 80768 [facility] 7 [facility] [place] DE[facility]MEN EMERGENCY T VISIT PHYS HIGH/URGE NT SEVERITY HOSPITAL [facility] - 7 7 N OUTPATIEN COMMUNTIY T HOSPITA EMERGENCY 90652 [facility] 7 7 N DEPARTMEN COMMUNTIY T VISIT HOSPITA MODERATE SEVERITY HOSPITAL [facility] - 7 7 N OUTPATIEN COMMUNTIY T HOSPITA EMERGENCY 08212 [facility] 7 7 [place] DEPARTMEN EMERGENCY T VISIT PHYS MODERATE SEVERITY EMERGENCY 11746 [facility] 7 7 N DEPARTMEN COMMUNTIY T VISIT HOSPITA LOW/MODER SEVERITY HOSPITAL [facility] - 6 6 N OUTPATIEN COMMUNTIY T HOSPITA EMERGENCY 67719 [facility] 6 6 [place] DEPARTMEN EMERGENCY T VISIT PHYS MODERATE SEVERITY EMERGENCY 91740 [facility] 6 6 N DEPARTMEN COMMUNTIY T VISIT HOSPITA HIGH/URGE NT SEVERITY OFFICE 84282 [facility] OUTPATIEN 6 6 AND T VISIT PEDIATRIC 15 S & INTER MINUTES OFFICE 78225 [facility] 6 6 ASTHMA III PRERNA T VISIT ASSOC OF 15 TH MINUTES [facility] - 6 6 N OUTPATIEN COMMUNTIY T HOSPITA EMERGENCY 86813 [facility] 6 6 [place] TESSIE DEPARTMEN EMERGENCY T VISIT PHYS MODERATE SEVERITY HOSPITAL [facility] - 6 6 N OUTPATIEN COMMUNTIY T HOSPITA EMERGENCY 61672 [facility] CELLAROSI 6 6 [place] [facility] DEPARTMEN EMERGENCY PAT T VISIT PHYS MODERATE SEVERITY EMERGENCY 77791 [facility] 6 6 N DEPARTMEN COMMUNTIY T VISIT HOSPITA LOW/MODER SEVERITY EMERGENCY 98736 [facility] MAR 6 6 [place] DEPARTMEN EMERGENCY T VISIT PHYS MODERATE SEVERITY OFFICE 01542 [facility] CONS[facility]AT 6 6 [facility] FAMILY NEW/ESTAB CLINI PATIENT 60 MIN OFFICE 56430 [facility] OUTPATIEN 6 6 N URGENT ABD T VISIT CARE 15 MINUTES PERIODIC 72586 JOSE GONZALESAll PREVENTIV 6 6 [facility] E MED EST SERV PATIENT FOUNDATIO 18-39 YRS N HOSPITAL [facility] - 6 6 Y [facility] T OFFICE 01482 [facility] OUTPATIEN 6 6 AND T VISIT PEDIATRIC 15 S & INTER MINUTES EMERGENCY 78578 [facility] DEPT 6 6 [place] ETSSIE VISIT EMERGENCY HIGH PHYS SEVERITY& THREAT FUNJ OFFICE 71068 [facility] N URGENT ABD T VISIT CARE 15 MINUTES OFFICE 37528 [facility] 6 6 ASTHMA III PRERNA T VISIT ASSOC OF 15 TH MINUTES EMERGENCY 06623 [facility] CELLAROSI DEPT 6 6 [place] VISIT EMERGENCY PAT HIGH PHYS SEVERITY& THREAT FUN OFFICE 77227 [facility] 6 N URGENT ABD T VISIT CARE 25 MINUTES OFFICE 72774 [facility] 5 5 [place] ELENA T NEW 30 ORTHOPAED MINUTES [facility] EMERGENCY 33804 [facility] 5 5 [place] DEPARTMEN EMERGENCY T VISIT PHYS MODERATE SEVERITY HOSPITAL [facility] - 5 5 N OUTPATIEN COMMUNTIY T HOSPITA EMERGENCY 46454 [facility] 5 5 N DEPARTMEN COMMUNTIY T VISIT HOSPITA LOW/MODER SEVERITY EMERGENCY 67230 [facility] INCT 5 5 [place] MON VISIT EMERGENCY HIGH PHYS SEVERITY& [facility] 5 5 N OUTPATIEN COMMUNTIY T HOSPITA EMERGENCY 50724 [facility] 5 5 N DEPARTMEN COMMUNTIY T VISIT HOSPITA MODERATE SEVERITY OFFICE 34621 [facility] GONZALESN OUTPATIEN 5 5 [facility] T VISIT SERV 15 FOUNDATIO MINUTES N HOSPITAL [facility] - 5 5 N OUTPATIEN COMMUNTIY T HOSPITA EMERGENCY 29620 [facility] 5 5 [place] TESSIE DEPARTMEN EMERGENCY T VISIT PHYS HIGH/URGE NT SEVERITY EMERGENCY 29673 [facility] 5 5 N DEPARTMEN COMMUNTIY T VISIT HOSPITA MODERATE SEVERITY OFFICE 91607 [facility] 5 5 ASTHMA III PRERNA T VISIT ASSOC OF 15 TH MINUTES EMERGENCY 45523 [facility] 5 5 [place] DEPARTMEN EMERGENCY T VISIT SERV MODERATE SEVERITY HOSPITAL [facility] - 5 5 N OUTPATIEN COMMUNTIY T HOSPITA EMERGENCY 23159 [facility] 5 5 N DEPARTMEN COMMUNTIY T VISIT HOSPITA LIMITED/M INOR PROB OFFICE 69830 [facility] RODRIGUEZ OUTPATIEN 5 5 [facility] T VISIT SERV 15 FOUNDATIO MINUTES N OFFICE 76203 [facility] OUTPATIEN 5 5 N URGENT ABD T VISIT CARE 15 MINUTES OFFICE 07424 [facility] OUTPATIEN 5 5 N URGENT ABD T NEW 30 CARE MINUTES OFFICE 19814 [facility] 5 5 ASTHMA HEYDI T NEW 60 ASSOC OF MINUTES TH OFFICE 69297 [facility] RODRIGUEZ OUTPATIEN 5 5 [facility] T VISIT SERV 10 FOUNDATIO MINUTES N EMERGENCY 29313 [facility] 5 5 N DEPARTMEN COMMUNTIY T VISIT HOSPITA LOW/MODER SEVERITY HOSPITAL [facility] - 5 5 N OUTPATIEN COMMUNTIY T HOSPITA EMERGENCY 16722 [facility] OZOR MAR 5 5 [place] DEPARTMEN EMERGENCY T VISIT PHYS MODERATE SEVERITY OFFICE 40083 [place] [facility] [facility] 5 5 [facility] T VISIT SERV 15 FOUNDATIO MINUTES N OFFICE 21004 [place] [facility] 5 5 [facility] T VISIT SERV 15 FOUNDATIO MINUTES N HOSPITAL [facility] - 5 5 N OUTPATIEN COMMUNTIY T HOSPITA EMERGENCY 75681 [facility] 5 5 N DEPARTMEN COMMUNTIY T VISIT HOSPITA LIMITED/M INOR PROB OFFICE 87071 [place] [facility] [facility] 5 5 [facility] T VISIT SERV 15 FOUNDATIO MINUTES N OFFICE 51335 [place] [facility] [facility] 5 5 [facility] T VISIT SERV 15 FOUNDATIO MINUTES N OFFICE 09609 [facility] 5 5 COL COL T VISIT 10 MINUTES HOSPITAL [facility] - 5 5 N OUTPATIEN COMMUNTIY T HOSPITA EMERGENCY 40123 [facility] CELLAROSI 5 5 [place] [facility] DEPARTMEN EMERGENCY PAT T VISIT PHYS HIGH/URGE NT SEVERITY OFFICE 82436 [place] [facility] 5 5 [facility] T VISIT SERV 15 FOUNDATIO MINUTES N OFFICE 71376 [place] [facility] 5 5 [facility] T VISIT SERV 15 FOUNDATIO MINUTES N OFFICE 52588 [place] [facility] [facility] 5 5 [facility] T VISIT SERV 15 FOUNDATIO MINUTES N [facility]ERGENCY 75781 [facility] DE[facility] COMMUNITY T VISIT HOSPITA MODERATE SEVERITY [facility] 5 5 N OUTPATIEN COMMUNITY T HOSPITA OFFICE 72835 [place] [facility] 5 5 [facility] T VISIT SERV 15 FOUNDATIO MINUTES N OFFICE 41428 [place] [facility] 4 4 [facility] T VISIT SERV 15 FOUNDATIO MINUTES N EMERGENCY 01889 [facility] 4 4 N [facility] COMMUNITY T VISIT HOSPITA MODERATE SEVERITY HOSPITAL [facility] - 4 4 N OUTPATIEN COMMUNITY T HOSPITA OFFICE 69093 [place] [facility] 4 4 [facility] T VISIT SERV 15 FOUNDATIO MINUTES N OFFICE 30010 [place] [facility] [facility] 4 4 [facility] T VISIT SERV 15 FOUNDATIO MINUTES N OFFICE 68035 [facility] 4 4 COL COL T NEW MINUTES OFFICE 92737 [place] [facility] [facility] 4 4 [facility] T VISIT SERV 15 FOUNDATIO MINUTES N HOSPITAL [facility] - 4 4 N OUTPATI COMMUNITY T HOSPITA EMERGENCY 61981 [facility] 4 4 N [facility] COMMUNITY T VISIT HOSPITA MODERATE SEVERITY OFFICE 65950 [place] [facility] 4 4 [facility] T VISIT SERV 15 FOUNDATIO MINUTES N OFFICE 84929 [place] [facility] 4 4 [facility] T VISIT SERV 15 FOUNDATIO MINUTES N EMERGENCY 73911 [facility] 4 4 MILAGRO PRERNA [facility] EMERGENCY T VISIT PHYS MODERATE SEVERITY EMERGENCY 73327 [facility] 4 4 N [facility] COMMUNITY T VISIT HOSPITA LIMITED/M INOR [facility] 47046 [place] [facility] 4 4 [facility] T VISIT SERV 15 FOUNDATIO MINUTES N OFFICE 91197 [place] [facility] 4 4 MEDICAL GUITAR MAKER T VISIT SERV 15 FOUNDATIO MINUTES EMERGENCY 93060 [facility] 4 4 N [facility] COMMUNITY T VISIT HOSPITA HIGH/URGE NT SEVERITY HOSPITAL [facility] 82190 [facility] 4 [facility] T VISIT SERV 15 FOUNDATIO MINUTES EMERGENCY 05973 [facility] 4 4 N [facility] COMMUNITY T VISIT HOSPITA HIGH/URGE NT SEVERITY HOSPITAL [facility] 4 [facility] 93708 [facility] 4 4 MEDICAL GUITAR MAKER T VISIT SERV 25 FOUNDATIO MINUTES EMERGENCY 24995 [facility] 4 4 N [facility] T VISIT HOSPITA HIGH/URGE NT SEVERITY HOSPITAL [facility] 4 [facility] 16138 [facility] 4 [facility] T VISIT HLTH DEPT HLTH DEPT 10 SCO SCO MINUTES EMERGENCY [id number] [facility] LLOYD 3 3 EMERGENCY TESSIE DEPARTMEN SERVICES T VISIT MODERATE SEVERITY HOSPITAL [facility] 3 [facility] 62650 [facility] 3 3 EMERGENCY DEPARTMEN SERVICES T VISIT HIGH/URGE NT SEVERITY EMERGENCY 86398 [facility] 3 3 N [facility] COMMUNITY T VISIT HOSPITA MODERATE SEVERITY HOSPITAL [facility] 3 [facility] - 3 3 N [facility] [place] [address] 2 N [facility] 82271 [facility] 2 2 N [facility] [place] [address] 2 N [facility] HOSPITA
--- OUTSIDE RECORDS SUMMARY | 2017-02-19 09:27 | External Medical Summary Rpt ---
Author Author NORY Hogue, [employer] Organization [employer] Address Unknown Phone Unavailable Results CHLAMYDIA AND GONORRHEA TESTING Observa Value Referen Units Interpr Notes Date tion ce etation Range COLLECT D LONG, No No No No September 23 BILLET INSPECTOR informa informa informa informa 2013 tion in tion in tion in tion in 11:00 source source source source AM data data data data ETHNICI WHITE, No No No No September 23 TY NON-HIS informa informa informa informa 2013 PANIC tion in tion in tion in tion in 11:00 source source source source AM data data data data KIT 2012-12 No No No No September 23 EXPIRAT -31 informa informa informa informa 2013 ION tion in tion in tion in tion in 11:00 DATE source source source source AM data data data data SYMPTOM NO No No No No September 23 S informa informa informa informa 2013 tion in tion in tion in tion in 11:00 source source source source AM data data data data REASON REVISIT No No No No September 23 FOR /ANNUAL informa informa informa informa 2013 REQUEST FAMILY tion in tion in tion in tion in 11:00 source source source source AM PLANNIN data data data data G VISIT SPECIME URINE No No No No September 23 N informa informa informa informa 2013 SOURCE tion in tion in tion in tion in 11:00 source source source source AM data data data data PREGNAN NO No No No No September 23 T informa informa informa informa 2013 tion in tion in tion in tion in 11:00 source source source source AM data data data data CHART 595-19- No No No No September 23 NUMBER [id number] informa informa informa informa 2013 tion in tion in tion in tion in 11:00 source source source source AM data data data data Chlamyd NEGATIV No No No NEGATIV September 23 ia E informa informa informa E 2013 trachom tion in tion in tion in RESULT= 11:00 atis source source source WITHIN AM rRNA data data data NORMAL [Presen ce] in LIMITSP Unspeci OSITIVE fied specime RESULT= n by Probe & ABNORMA target LEQUIVO VALENTE amplifi RESULT= cation method INDETER MINATEU NSATISF ACTORY RESULT= INVALID Neisser NEGATIV No No No NEGATIV September 23 ia E informa informa informa E 2013 gonorrh tion in tion in tion in RESULT= 11:00 oeae source source source WITHIN AM rRNA data data data NORMAL [Presen ce] in LIMITSP Unspeci OSITIVE fied specime RESULT= n by Probe & ABNORMA target LEQUIVO VALENTE amplifi RESULT= cation method INDETER MINATEU NSATISF ACTORY RESULT= INVALID THE APTIMA COMBO 2 ASSAY IS NOT INTENDE D FOR THE EVALUAT ION OF SUSPECT EDSEXUA L ABUSE OR FOR OTHER MEDICO- LEGAL INDICAT IONS. FOR THOSE PATIENT S FORWHOM A FALSE POSITIV E RESULT MAY HAVE ADVERSE PSYCHO- SOCIAL IMPACT, [facility] NG.\.br \This report contain s patient informa tion that must be protect ed in accorda nce with the Health Insuran ce Portabi lity and Account ability Act. CHLAMYDIA AND GONORRHEA TESTING Observa Value Referen Units Interpr Notes Date tion ce etation Range COLLECT D LONG, No No No No September 23 BILLET INSPECTOR informa informa informa informa 2013 tion in tion in tion in tion in 11:00 source source source source AM data data data data ETHNICI WHITE, No No No No September 23 TY NON-HIS informa informa informa informa 2013 PANIC tion in tion in tion in tion in 11:00 source source source source AM data data data data KIT 2012-12 No No No No September 23 EXPIRAT -31 informa informa informa informa 2013 ION tion in tion in tion in tion in 11:00 DATE source source source source AM data data data data SYMPTOM NO No No No No September 23 S informa informa informa informa 2013 tion in tion in tion in tion in 11:00 source source source source AM data data data data REASON REVISIT No No No No September 23 FOR /ANNUAL informa informa informa informa 2013 REQUEST FAMILY tion in tion in tion in tion in 11:00 source source source source AM PLANNIN data data data data G VISIT SPECIME URINE No No No No September 23 N informa informa informa informa 2013 SOURCE tion in tion in tion in tion in 11:00 source source source source AM data data data data PREGNAN NO No No No No September 23 T informa informa informa informa 2013 tion in tion in tion in tion in 11:00 source source source source AM data data data data CHART 595-19- No No No No September 23 NUMBER [id number] informa informa informa informa 2013 tion in tion in tion in tion in 11:00 source source source source AM data data data data Chlamyd Pending No No No No September 23 ia informa informa informa informa 2013 trachom tion in tion in tion in tion in 11:00 atis source source source source AM rRNA data data data data [Presen ce] in Unspeci fied specime n by Probe & target amplifi cation method Neisser Pending No No No \.br\September 23 ia informa informa informa is 2013 gonorrh tion in tion in tion in report 11:00 oeae source source source contain AM rRNA data data data s [Presen patient ce] in Unspeci informa fied tion specime that n by must be Probe & target protect ed in amplifi accorda cation nce method with the Health Insuran ce Portabi lity and Account ability Act.
--- OUTSIDE RECORDS SUMMARY | 2017-02-19 09:27 | External Medical Summary Rpt | CCD ---
Demographics Preferred Language Yakut Marital Status Unknown Hoahaoism Affiliation Unknown Race Unknown Ethnic Group Unknown Author Author , NORY CUETO Address Unknown Phone Immunization No patient found.
--- OUTSIDE RECORDS SUMMARY | 2017-02-19 09:27 | External Medical Summary Rpt ---
Author Author [facility], [employer] Organization [employer] Address Unknown Phone Unavailable Results CHLAMYDIA AND GONORRHEA TESTING Observa Value Referen Units Interpr Notes Date tion ce etation Range COLLECT D LONG, No No No No September 23 METALLURGICAL OR MATERIALS TECHNICIAN informa informa informa informa 2013 tion in [...] MAY HAVE ADVERSE PSYCHO- SOCIAL IMPACT, [facility].\.br \This report contain s patient informa tion that must be protect ed in accorda nce with the Health Insuran ce Portabi lity and Account ability Act. CHLAMYDIA AND GONORRHEA TESTING Observa Value Referen Units Interpr Notes Date tion ce etation Range COLLECT D LONG, No No No No September 23 METALLURGICAL OR MATERIALS TECHNICIAN informa informa informa informa 2013 tion in [...]
--- OUTSIDE RECORDS SUMMARY | 2017-02-19 09:27 | External Medical Summary Rpt | CCD ---
Demographics Preferred Language Telugu Marital Status Unknown Jain Affiliation Unknown Race Unknown Ethnic Group Unknown Author Author , NORY CUETO Address Unknown Phone Immunization No patient found.
--- NOTE | 2017-02-19 09:39 | RADIOLOGY REPORT PS360 ---
ANKLE-RT-3 VIEWS HISTORY: FALL WITH PAIN ORDERING PHYSICIAN: Palmer Vargas MD PATIENT AGE: 26 years COMPARISON: None FINDINGS: No fracture or dislocation. No lytic or blastic change. There is normal mineralization.. The joint spaces are well-preserved. No significant degenerative/arthritic changes. No erosive changes evident. IMPRESSION: Negative, no acute finding
--- NOTE | 2017-02-19 09:39 | RADIOLOGY REPORT PS360 ---
ANKLE-LT-3 VIEWS HISTORY: FALL WITH PAIN ORDERING PHYSICIAN: Palmer Vargas MD PATIENT AGE: 26 years COMPARISON: None FINDINGS: No fracture or dislocation. No lytic or blastic change. There is normal mineralization.. The joint spaces are well-preserved. No significant degenerative/arthritic changes. No erosive changes evident. Mild soft tissue swelling laterally. IMPRESSION: No acute fracture. Mild soft tissue swelling laterally
== END 2017-02-19 08:53 | disposition home or self-care (01) ==
LOC: ER 08:16
DX: S93.402A Sprain of unspecified ligament of left ankle, initial encounter (principal); W10.9XXA Fall (on) (from) unspecified stairs and steps, initial encounter; Y93.89 Activity, other specified; Y92.009 Unspecified place in unspecified non-institutional (private) residence as the place of occurrence of the external cause; S93.401A Sprain of unspecified ligament of right ankle, initial encounter

== ENCOUNTER → 2017-04-18 | Outpatient (CLI) | payer MEDICAID ==
[2017-04-18 08:57] LABS: BUN 19 mg/dL (7-18)
[2017-04-18 08:59] LABS: GFR (ESTIMATED) 102 ML/MIN (59-)
== END ==
LOC: LAB 07:33
PROVIDERS: Pediatrics
DX: R73.9 Hyperglycemia, unspecified (principal); E03.9 Hypothyroidism, unspecified; N39.0 Urinary tract infection, site not specified; Z13.220 Encounter for screening for lipoid disorders